=== PATIENT | female | born 1945 | race Caucasian/White ===

== ENCOUNTER 2016-09-15 09:02 | Emergency (ER) | payer MEDICARE ==
[~2016-09-15] VITALS: Ht 157.5 cm; Wt 71.8 kg
[2016-09-15 09:07] VITALS: BP 136/87; PULSE 98; RESP 15; O2SAT 98
--- NOTE | 2016-09-15 09:16 | ED.REPORT ---
HPI-General Illness Date of Service September 15, 2016 ED Provider: The patient is a 70 year old female with history of kidney stones, ischemic colitis s/p bowel resection, hypertension, high cholesterol, and diabetes mellitus type II, who presents to the emergency department complaining of right flank pain that began suddenly this morning. Her pain radiates into her right lower abdomen and right groin region. Her pain is constantly a "dull ache" but she gets waves of "sharp" pain. She has also noticed hematuria, dysuria, and nausea. She took Zofran and Vicodin this morning with some relief. Her pain is currently at a 6/10. She denies fever, vomiting, diarrhea or bloody stools. Her symptoms are similar to when she previously had kidney stones. She was seen at [facility] and diagnosed with a kidney stone last year. Nursing Notes Stated Complaint: PASSING KIDNEY STONE/ UTI Chief Complaint: Back Pain or Injury Nursing Notes Reviewed: Yes Allergies: Coded Allergies: morphine (Verified Adverse Reaction, Intermediate, jittery, 09/15/16) codeine (Verified Adverse Reaction, Mild, nausea, 09/15/16) General Time Seen by MD: 09:15 Chief Complaint Other (flank pain) Hx Obtained From: Patient Arrived By: Walk-in Sudden in Onset?: Yes Onset Occurred: 1 - 4 hours ago Symptom Duration: Since onset Location: : Back (flank pain) Quality: Painful Radiation: : Abdomen Severity: Current: Pain level 6 out of 10 Severity: Maximum: Severe Recent Healthcare: No recent hospitalization Similar Sx Previous: Yes Past Medical History Past Medical History Hx of kidney stones Ischemic colitis s/p bowel resection Hypothyroidism Hypertension Migraines Diabetes mellitus type II High cholesterol Past Surgical History Hysterectomy Bowel resection for ischemic colitis Appendectomy Family History Noncontributory Smoking History Unknown if Ever Smoker Social History Other Social History: Poor social support, , Local resident Ambulatory Status Independent Review of Systems Full Review of Systems Constitutional: Denies: Fever GI: Reports: Abdominal pain, Nausea, Denies: Bloody/tarry stool, Diarrhea, Hematochezia, Vomiting Female: Reports: Dysuria, Flank pain, Hematuria Musculoskeletal: Reports: Back pain Complete sys rev & neg: except as marked. Physical Exam Vital Signs Vital Signs Date Time Temp Pulse Resp B/P Pulse Ox O2 Delivery O2 Flow Rate FiO2 09/15/16 12:11 88 15 128/80 98 Room Air 09/15/16 09:07 36.0 98 15 136/87 98 Room Air Initial VS: Reviewed Head / Eyes: Atraumatic, Normocephalic, PERRL ENT: Mucous membranes moist, Conjunctiva normal, No scleral icterus Neck: Supple, Non-tender, Full range of motion Respiratory: Breath sounds normal, Clear to auscultation, No respiratory distress Cardiovascular: Regular rate & rhythm, Heart sounds normal, Intact distal pulses Lymphatic: No lymphadenopathy Extremities: Vascular intact, Neuro intact, No swelling, No tenderness Skin: Warm, Dry, No cyanosis Neurologic: Alert, Oriented, Nonfocal Psychiatric: Mood/affect normal, Behavior normal, Normal thought content General/Constitutional: Awake, Alert, No acute distress, Cooperative Abdomen: Soft, McBurney's non-tender, No guarding, No rebound, BS normoactive, No distention, No hernia, No palpable mass, No pulsatile mass Tenderness/Guarding/Rebound: Positive: Tender suprapubic (minimal) Back: Full range of motion, Painless range of motion, No midline vertebral tend Flank / Spine / Paraspinal: Positive: Flank tender R Interpretation & Diagnostics Interpretation & Diagnostics: Urine dip: positive for only blood. CT KUB IMPRESSION: There is a punctate faint calcification at the collecting system of the left mid kidney, but this is not a obstructing calculus. There is prominence of the collecting system of each kidney greater on the right than the left, and several superimposed peripelvic cysts may be present, perhaps greater on the left than the right. Contrast-enhanced scanning would be necessary to differentiate between areas of collecting system dilatation and peripelvic cysts. There is a definite impacted 5 x 8 mm distal right ureteral calculus causing mild to moderate hydroureter on the right and also moderate hydronephrosis on the right. This calculus measures 900 Hounsfield units. Dictated by: Faraz Mullins M.D. on 09/15/2016 at 11:01 Lab Results Interpretation Result Diagram: 09/15/16 0930 09/15/16 0930 Test 09/15/16 09:25 09/15/16 09:30 Urine Color Yellow (YELLOW) Urine Appearance Clear (CLEAR,HAZY) Urine pH 6.0 (5.0-8.0) Urine Specific [place] 1.005 (1.003-1.035) Urine Protein Negativemg/dL (NEG,TRACE) Urine Glucose (UA) Negativemg/dL (NEGATIVE) Urine Ketones Negativemg/dL (NEGATIVE) Urine Occult Blood Moderate (NEGATIVE) Urine Nitrite Negative (NEGATIVE) Urine Bilirubin Negative (NEGATIVE) Urine Urobilinogen Normalmg/dL (NORMAL) Urine Leukocyte Esterase Negative (NEGATIVE) Urine RBC 3-10/hpf (0-2) Urine WBC 0-5/hpf (0-5) Urine Epithelial Cells Occasional/hpf (NONE-MOD) Urine Crystals None seen (NONE SEEN) Urine Bacteria None/hpf (NONE-FEW) Urine Hyaline Casts None/lpf (NONE) Urine Granular Casts None seen (NONE SEEN) Urine Waxy Casts None seen (NONE SEEN) Urine Red Blood Cell Casts None seen (NONE SEEN) Urine White Blood Cell Casts None seen (NONE SEEN) Urine Mucus None seen (None Seen) Urine Trichomonas None seen (NONE SEEN) Urine Yeast None (NONE SEEN) Urinalysis Comment None Urine Culture Reflexed Not indicated White Blood Count 8.5th/mm3 (3.8-10.1) Red Blood Count 4.57mil/mm3 (3.90-5.20) Hemoglobin 12.6g/dL (12.0-15.6) Hematocrit 40.3% (35.0-46.0) Mean Corpuscular Volume 88.2fL (81-100) Mean Corpuscular Hemoglobin 27.6pg (27.0-35.0) Mean Corpuscular Hemoglobin Concent 31.3% (32.0-37.0) Red Cell Distribution Width 13.7% (12.3-15.4) Platelet Count 247bil/L (150-400) Neutrophils (%) (Auto) 68.4% (40-74) Lymphocytes (%) (Auto) 17.9% (14-46) Monocytes (%) (Auto) 7.8% (4-12) Eosinophils (%) (Auto) 5.5% (0-5) Basophils (%) (Auto) 0.2% (0-3) Sodium Level 133mEq/L (134-144) Potassium Level 4.5mEq/L (3.5-5.2) Chloride Level 96mEq/L (97-108) Carbon Dioxide Level 24mmol/L (18-29) Blood Urea Nitrogen 20mg/dL (8-27) Creatinine 0.60mg/dL (0.57-1.00) Estimat Glomerular Filtration Rate 142mL/min (>59) Glucose Level 195mg/dL (60-99) Calcium Level 9.2mg/dL (8.5-10.1) Magnesium Level 2.0mg/dL (1.6-2.6) Total Bilirubin 0.3mg/dL (0.0-1.2) Aspartate Amino Transf (AST/SGOT) 22U/L (0-50) Alanine Aminotransferase (ALT/SGPT) 19U/L (0-32) Alkaline Phosphatase 70U/L (25-165) Total Protein 7.0g/dL (6.4-8.4) Albumin 4.1g/dL (3.4-5.0) Lipase 13U/L (13-60) Hold Gardner Top Tube Received (Received) Re-Eval/Medical Decision Source of Hx: Old records Time of Eval: 11:15 Re-Evaluation/Progress Note: Rechecked the patient. Discussed results, diagnosis, and plan for discharge. All questions were addressed. Counseled Regarding: Diagnosis, Lab results, Need for follow-up, When/why to return to ED Discharge & Departure Primary Impression: Ureteral stone Disposition: Home Discharge Condition All VS Reviewed: Yes Condition: Stable Patient Instructions: Renal Colic (ED) Additional Instructions: Thank you for entrusting us with your care today. Your CT scan does show evidence of a stone in your right ureter. There is no evidence of an infection at this time. Use the Vicodin you have at home for your pain. Use should also take ibuprofen 400 mg every 6 hours. You should followup with a urologist to further investigate this. We have given you a referral to Dr. Gonsalves. Return to the emergency department if you develop a fever, vomiting, inability to urinate, or any other new or concerning symptoms. Referrals: OTHER,PHYSICIAN (PCP) Zina Gonsalves MD Attestation Portions of this note were transcribed by Ananya Easley. I, Dr. Lynne personally performed the history, physical exam and medical decision-making; I reviewed and confirmed the accuracy of the information in the transcribed note. Signed by: Sheri Tirado, 09/15/2016 at 1145. copies to: Zina Gonsalves MD, Timothy S DO September 15, 2016 09:16 Kaushal,Ananya Langley September 15, 2016 09:23
[2016-09-15] MEDS ORDERED: 0.9% Sodium Chloride 1,000 ML IV ONE (09:22)
[2016-09-15] MEDS ORDERED: Ketorolac 15 mg/mL Inj IVPUSH ONE (09:25)
[2016-09-15] MEDS ORDERED: Ondansetron 2 mg/mL 2 mL Inj IVPUSH PRN (09:25)
[2016-09-15 09:51] LABS: BASOPHILS % (AUTO) 0.2 % (0-3); EOSINOPHILS % (AUTO) 5.5 % (0-5); MONOCYTES % (AUTO) 7.8 % (4-12); Mean Corpuscular Hemoglobin 27.6 pg (27.0-35.0); Mean Corpuscular Volume 88.2 fL (81-100); NEUTROPHILS % (AUTO) 68.4 % (40-74); Platelet Count 247 bil/L (150-400)
[2016-09-15 09:55] LABS: APPEARANCE,URINE CLEAR (CLEAR,HAZY); COLOR,URINE YELLOW (YELLOW); OCCULT BLOOD,URINE MODERATE (NEGATIVE); UROBILINOGEN,URINE NORMAL (NORMAL)
--- NOTE | 2016-09-15 11:13 | DRSVH ---
PROCEDURE: CT KUB ([id number]) INDICATIONS: right flank pain TECHNIQUE: Noncontrast 5 mm thick sections acquired from the diaphragms to the symphysis. 5 mm thick coronal an d sagittal reformats were then performed. For radiation dose reduction, the following was used: aut omated exposure control, adjustment of mA and/or kV according to patient size. COMPARISON: None. FINDINGS: Image quality: Excellent. Lung bases: Lung bases are clear. Heart size is normal. Urinary system: Both kidneys are normal in size. No kidney stones on the right but there is a minh meter diameter calculus at the left mid kidney (series 2 image 22). There is moderate prominence of the collecting system of each kidney, and a component of this may actually be superimposed peripelvic cysts but at least on the right a moderate degree of hydronephrosis appears present given the additi onal presence of mild to moderate hydroureter extending on the right to the distal ureter where a imp acted plus measuring 900 Hounsfield units can be seen, acetabular roof axial level (series 2 image 62 ). Both ureters appear non-dilated throughout their expected courses. Bladder wall thickness is nor mal; no calcified bladder stones. Other solid organs: Liver and spleen are normal in size. Gallbladder appears normal. Pancreas is n ormal in contours. No adrenal nodules. Peritoneum and bowel: Unenhanced bowel loops demonstrate normal wall thickness and caliber. No free fluid or air. Nodes and vessels: No retroperitoneal or mesenteric adenopathy by size criteria. Aorta and inferior vena cava are normal in caliber. Abdominal wall: No ventral hernias. Pelvis: No free pelvic fluid. No inguinal hernias or adenopathy. Bones: No suspicious bony lesions. No vertebral body compression fractures. IMPRESSION: There is a punctate faint calcification at the collecting system of the left mid kidney, but this is not a obstructing calculus. There is prominence of the collecting system of each kidney greater on the right than the left, and several superimposed peripelvic cysts may be present, perhaps greater on the left than the right. Contrast-enhanced scanning would be necessary to differentiate between areas of collecting system dilatation and peripelvic cysts. There is a definite impacted 5 x 8 mm distal right ureteral calculus causing mild to moderate hydrour eter on the right and also moderate hydronephrosis on the right. This calculus measures 900 H[address]sf[address] units. Dictated by: Faraz Mullins M.D. on 09/15/2016 at 11:01 Approved by: Faraz Mullins M.D. on 09/15/2016 at 11:11
[2016-09-15 12:11] VITALS: BP 128/80; PULSE 88; RESP 15; O2SAT 98
[2016-10-07] MEDS ORDERED: metformin (14:46)
[2016-10-07] MEDS ORDERED: LORA-303 PO (14:46)
[2016-10-07] MEDS ORDERED: Imitrex (14:46)
[2016-10-07] MEDS ORDERED: Lipitor (14:46)
[2016-10-07] MEDS ORDERED: HYDR-3090 PO (14:46)
[2016-10-07] MEDS ORDERED: biotin (14:46)
[2016-10-07] MEDS ORDERED: Amitriptyline (14:46)
[2016-10-07] MEDS ORDERED: LEVO125T6 PO (14:46)
[2016-10-07] MEDS ORDERED: OMEP20TA24 PO (14:46)
[2016-10-07] MEDS ORDERED: magnesium (14:46)
== END 2016-09-15 12:12 | disposition home or self-care (01) ==
LOC: SED 09:02
DX: N20.1 Calculus of ureter (principal); E03.9 Hypothyroidism, unspecified; I10 Essential (primary) hypertension; E11.9 Type 2 diabetes mellitus without complications; Z98.890 Other specified postprocedural states; Z88.5 Allergy status to narcotic agent
CPT/HCPCS: 36415; 74176; 80053; 81000; 83690; 83735; 85025; 96361; 96374; 96375; 99285; J1885; J2405; J7030

== ENCOUNTER 2016-10-11 09:23 | Day surgery (SDC) | payer MEDICARE ==
[~2016-10-11] VITALS: Ht 157.5 cm; Wt 72.0 kg
[2016-10-11] VITALS (8 sets, daily range): BP systolic 130–156; BP diastolic 65–75; PULSE 87–93; RESP 12–18; O2SAT 96–100
[~2016-10-11 09:23] MED LIST: Amitriptyline PO; CeFAZolin 2 Gm/50 mL D5W IV Premix IV ONE; HYDR-3090 PO; Imitrex; LEVO125T6 PO; LORA-303 PO; Lactated Ringer's 1,000 ML IV ONE; Lipitor PO; OMEP20TA24 PO; biotin; magnesium; metformin PO
[2016-10-11] MEDS ORDERED: Dexamethasone 4 mg/mL Inj ONE (09:24)
[2016-10-11] MEDS ORDERED: Propofol 10,000 mCg/mL 20 mL Inj ONE (09:24)
[2016-10-11] MEDS ORDERED: MetoCLOpramide 5 mg/mL 2 mL Inj ONE (09:24)
[2016-10-11] MEDS ORDERED: Ondansetron 2 mg/mL 2 mL Inj ONE (09:24)
[2016-10-11] MEDS ORDERED: fentaNYL-PF 50 mCg/mL 2 mL Inj ONE (09:24)
[2016-10-11] MEDS ORDERED: CeFAZolin 2 Gm/50 mL D5W Duplex Bag IV ONE (09:34)
[2016-10-11] MEDS ORDERED: PROZ20 PO (10:30)
[2016-10-11] MEDS ORDERED: tylenol PO (10:30)
--- NOTE | 2016-10-11 10:57 | PCM.HPANE ---
Patient Data Surgeon Admitting Provider: Attending Provider:Zina Gonsalves MD Primary Care Physician:Other,Physician Other Provider:Megan Kim Anesthesia Reason for Visit Right Ureteral Stone Ht/WT & BMI Height (Feet): 5 Height (Inches): 2.00 Weight (Kilograms): 72.0 Body Mass Index 29.00 Allergies Coded Allergies: morphine (Verified Adverse Reaction, Intermediate, jittery, 09/15/16) codeine (Verified Adverse Reaction, Mild, nausea, 09/15/16) Past Anesthesia History Anesthesia History: Denies:: Abnormal Airway, Anesthesia Reactions, Difficult Intubation, Fam Anesthesia Reaction, Fam Malignant Hypertherm, Malignant Hyperthermia Diabetes History Hx Diabetes?: Yes (blood sugar at home at 0730 96, drank breonna j, blood suager up to 135 at 09) Type of Diabetes: Type II Glycemic Control: Oral Medication Current Bedside Blood Glucose: 119 MRSA MRSA: No Medications Home Meds Incl Beta Uriel: No Reported Medications Fluoxetine (Prozac)20 Mg Wiufllt99 Mg PO DAILY Ref 0 10/11/16 [tylenol] No Conflict [id number] Mg PO prn 10/11/16 Levothyroxine 125 Mcg [id number] Mcg PO DAILY For Thyroid Replacement Ref 0 10/07/16 Hydrocodone-Acetaminophen 5-300 mg 1 Each Tablet1 Tablet PO QID For Pain Ref 0 10/07/16 Omeprazole Magnesium (Prilosec Otc)20 Mg Tablet.dr20 Mg PO BID #1 PKG Ref 0 10/07/16 [metformin] No Conflict Cyfet501 Mg PO BID 10/07/16 [magnesium] No Conflict CheckUnknown Dose 10/07/16 [Lipitor] No Conflict Check20 Mg PO DAILY 10/07/16 [Imitrex] No Conflict CheckUnknown Dose DIRECTED PRN Headache 10/07/16 [biotin] No Conflict CheckUnknown Dose 10/07/16 Lorazepam (Ativan)1 Mg Tablet1 Mg PO TID PRN For Anxiety Ref 0 10/07/16 [Amitriptyline] 10 No Conflict Check10 Mg PO DAILY 10/07/16 History History of ENT Problems?: No HEENT History: Positive for:: Cataracts (left eye June 2015) Denies:: Abnormal Airway Difficult Intubation Dysphagia Glaucoma Hearing Problem Sinus Problem TMJ Denture Type: None Teeth Condition: Within Normal Limits Hx of Heart Problems?: Yes Cardiovascular History: Positive for:: Hypertension Denies:: AICD Abdominal Aortic Aneurism Atrial Fibrillation Cardiac Surgery Chest Pain Congestive Heart Failure Coronary Artery Disease Edema Irregular Heartbeat Pacemaker Peripheral Vascular Rheumatic Fever Thrombophlebitis Other Cardiac History: Patient states she has a normal heart rate. Patient has had normal cardiac workup Hx of Respiratory Problem?: No Respiratory History: Denies:: Asthma Tuberculosis Hx Neurologic Problems?: Yes Neurological History: Positive for:: Headaches (migraines sperattic usually when the weather changes) Denies:: Alzheimer's Disease CVA Dementia Dizziness Multiple Sclerosis Parkinson's Disease Seizures TIA Hx of GI Problems?: No Hx of Problems?: Yes Genitourinary History: Positive for:: Kidney Stones Urinary Tract Infection (August 2016 tx with Abx. all clear now) Denies:: HX of Hemodialysis HX of Peritoneal Dialysis: No Female Hx: Denies:: Currently Endometriosis Pelvic Inflammatory Problems with Breasts? Skin History: Denies:: History Skin Disorders? Pressure Ulcers Hx Musculoskeletal Problems?: Yes Musculoskeletal History: Positive for:: Musculoskeletal Trauma (2012 broke scapula with plate repair) Osteoarthritis (knees) Denies:: Back Injury Degenerative Joint Fibromyalgia Joint Replacement Myasthenia Gravis Rheumatoid Arthritis Systemic Lupus Hx of Psycho/Social Problems?: Yes Psycho Social History: Positive for:: Anxiety (tx with ativan) Hx Depression Denies:: Bipolar Disorder Suicide Attempt Hx Surgeries?: Yes (Hysterectomy, Partial bowel resection, Hernia repair, Sholder fx) Other History: Positive for:: Endocrine Disease Hospitalization Thyroid Disease (Hypothyroid on Levothyroxin) Denies:: Cancer History Blood Transfusions: Positive for:: Accept Blood Products? Blood Transfusions (Post child 1968) Denies:: Blood Transfuse Reaction Hx Diabetes: Yes (blood sugar at home at 0730 96, drank apple j, blood suager up to 135 at 09)Bedside Blood Glucose: 119 Hx Alcohol Use: Yes (once a month a glass of wine)Alcoholic Drinks Per Day: 0 Hx Substance Use: No Smoking Status: Unknown if Ever Smoker Stop/Bang Treated for Sleep Apnea?: No Do You Have a CPAP Machine?: No S-Snoring: Do You Snore Loudly: Yes T-Tired: feel tired, fatigued: No O-Obsered: Observed not breath: No P-Blood Pressure: treated: No B- Body Mass Index > 35 kg/m2: No A- Age over 50: Yes N- Neck Large Circumference: No G- Gender Male: No CARLOS MANUEL Total Score: 2 CARLOS MANUEL Risk Assessment: Low Risk, <3 Yes Risk Assessment Category Category 1A: Patient has history of documented sleep apnea, and HAS NOT received any narcotic, sedative or anesthesia administration during this stay. Category 1B: Patient has history of documented sleep apnea, and HAS received any narcotic , sedative or anesthesia administration during this stay Category 2: Patient has SUSPECTED Obstructive Sleep Apnea, and HAS received any narcotic , sedative or anesthesia administration during this stay. Category 3: Patient has SUSPECTED Obstructive Sleep Apnea and HAS NOT received narcotic, sedative or anesthesia administration during this stay. Category 4: Outpatient in Procedural Areas with known sleep apnea or who screen positive for High Risk via the STOP/BANG questionnaire. Exam Exam Vital Signs Vital Signs Date Time Temp Pulse Resp B/P Pulse Ox O2 Delivery O2 Flow Rate FiO2 10/11/16 10:02 35.5 93 18 130/75 97 Room Air General Appearance: Oriented X3 HEENT/AIRWAY: MP 2 Lungs: Normal Air Movement Heart: Regular Rate/Rhythm Meds/Labs/Diagnostics Admission Meds Current Medications Lactated Ringer's (Lr) 1,000 ml @ 120 mls/hr Q8H20M ONCE IV Last administered on 10/11/16t 09:28; Start 10/11/16 at 05:00; Stop 10/11/16 at 13:19 Bedside Blood Glucose: 119 Plan Impression Patient chart reviewed, patient interviewed and anesthestic plan with risks, benefits, and alternatives discussed, and informed consent obtained. ASA Physical Status: ASA2 Mod Systemic Disease Anesthetic Plan: GA Bene/Risks/Altern/Consents: Yes HP Complete Prior to Induction: Yes Amandeep Oliveros MD Oct 11, 2016 10:57
[2016-10-11] MEDS ORDERED: Lactated Ringer's 500 ML IV PRN (14:37)
[2016-10-11] MEDS ORDERED: Lactated Ringer's 1,000 ML IV SCH (14:37)
--- NOTE | 2016-10-11 14:39 | PCM.ANEP1 ---
Post Anesthesia PACU Phase 1 Assessment Vital Signs Vital Signs Date Time Temp Pulse Resp B/P Pulse Ox O2 Delivery O2 Flow Rate FiO2 10/11/16 14:30 91 12 152/67 97 Room Air 10/11/16 14:26 36.7 91 17 151/68 100 Simple Mask 8 10/11/16 10:02 35.5 93 18 130/75 97 Room Air Anesthetic Administered: GA Level of Alertness: Awake, talking Pain: No Nausea or Vomiting: No CV Function & Hydration Stable: Yes Airway Device: Lungs: Normal Air Movement PACU Phase 2 Assessment Patient Instructions Provided: N/A Amandeep Oliveros MD Oct 11, 2016 14:39
[2016-10-11] MEDS ORDERED: MetoCLOpramide 5 mg/mL 2 mL Inj IVPUSH PRN (14:40)
[2016-10-11] MEDS ORDERED: Dexamethasone 4 mg/mL Inj IVPUSH PRN (14:40)
[2016-10-11] MEDS ORDERED: EPHEDrine Sulfate 50 mg/mL Inj IVPUSH PRN (14:40)
[2016-10-11] MEDS ORDERED: Ondansetron 2 mg/mL 2 mL Inj IVPUSH PRN (14:40)
[2016-10-11] MEDS ORDERED: Phenylephrine 10,000 mCg/mL Inj IVPUSH PRN (14:40)
[2016-10-11] MEDS ORDERED: fentaNYL-PF 50 mCg/mL 2 mL Inj IVPUSH PRN (14:40)
[2016-10-11] MEDS ORDERED: HYDROcodone-APAP 5-325 mg Tablet PO PRN (14:40)
--- NOTE | 2016-10-11 15:12 | DRSVH ---
PROCEDURE: X-RAY RETROGRADE UROGRAPHY INDICATIONS: C-ARM ASSISTED RIGHT STENT PLACEMENT TECHNIQUE: 2 fluoroscopic intra-operative images acquired by the Urology service. COMPARISON: None. FINDINGS: 2 intraoperative fluoroscopic views demonstrate right ureteral stent placement. IMPRESSION: Right ureteral stent placement. Dictated by: Karly Piedra M.D. on 10/11/2016 at 15:09 Approved by: Karly Piedra M.D. on 10/11/2016 at 15:10
--- NOTE | 2016-10-11 20:42 | OP ---
[address] [address] OPERATIVE REPORT PATIENT: WALTER LÓPEZ : 1945 MR#: [id number] ADMIT: 10/11/2016 JOB ID: [id number] DATE OF SURGERY: 10/12/2016 PREOPERATIVE DIAGNOSIS(ES): Right distal ureteral stone. POSTOPERATIVE DIAGNOSIS(ES): Right distal ureteral stone. PROCEDURE PERFORMED: 1. Cystoscopy and right retrograde pyelogram. 2. Right ureteroscopy, laser lithotripsy and stone basketing. 3. Right ureteral stent placement. SURGEON: Zina Gonsalves MD DRIVER [employer] TRUCK: None. FINDINGS: Right distal ureteral stone consistent with the CT measurement of 5 mm x 8 mm. ANESTHESIA: General. ESTIMATED BLOOD LOSS: Less than 2 mL. DRAINS: A 6 x 22, right double-J ureteral stent. SPECIMENS: Right ureteral stone. COMPLICATIONS: None. CONDITION: Stable. INDICATIONS FOR PROCEDURE: The patient is a 70-year-old woman with a 5 x 8 mm right distal ureteral stone. She now presents for the aforementioned procedure. DESCRIPTION OF PROCEDURE: After informed consent was obtained, the patient was taken to the operating room. A time-out was performed identifying correct patient, surgical site, and procedure. General anesthesia was smoothly induced. She was given intravenous antibiotics just prior to the start of the procedure. She was placed in the lithotomy position and all pressure points were identified and appropriately padded. Her genitals were then prepped and draped in usual sterile fashion. A 22-Nigerien rigid scope was applied to the patient's urethra and advanced to the bladder. The bladder was drained. The right ureteral orifice was seen in orthotopic position. It was cannulated with a 5-Nigerien open-ended Pollack. Retrograde pyelogram was performed. It appeared normal. Two Sensor tip wires were then used to cannulate the ureteral orifice in succession and placed into the renal pelvis as seen under fluoroscopy. Semi-rigid ureteroscopy then commenced. There was seen a stone in the right distal ureter. A 273 micron laser fiber wire was used to break the stone into small pieces. A Zero Tip Nitinol basket was used to basket the stone fragments. These were passed off the table to Pathology for stone analysis. The ureter was inspected. The mid ureter and distally was inspected. There were no further stone fragments. The ureteroscope was then removed under direct vision. One of the wires was then removed. The remaining wire was then backloaded into the cystoscope and a 6 x 22 double-J ureteral stent was loaded over it and advanced into the renal pelvis as seen under fluoroscopy. The wire was then removed leaving a nice coil in the patient's bladder seen under direct vision. The bladder was drained. Instruments were then removed from the patient's body. She was then reversed from general anesthesia and taken to PACU in good and stable condition. NU
== END 2016-10-11 23:59 | disposition home or self-care (01) ==
LOC: SAS 09:23
PROVIDERS: ATTEND Urology
DX: N20.1 Calculus of ureter (principal); I10 Essential (primary) hypertension; E11.9 Type 2 diabetes mellitus without complications; M19.90 Unspecified osteoarthritis, unspecified site; F41.8 Other specified anxiety disorders; Z79.84 Long term (current) use of oral hypoglycemic drugs; Z90.710 Acquired absence of both cervix and uterus
CPT/HCPCS: 52356; 74420; 82360; C2617; J0690; J1100; J2405; J2765; J3010; J7120; Q9967

== ENCOUNTER 2016-10-18 15:39 | Inpatient (IN) | payer MEDICARE ==
[~2016-10-18] VITALS: Ht 157.5 cm; Wt 75.2 kg
[~2016-10-18 15:39] MED LIST changes: -CeFAZolin 2 Gm/50 mL D5W IV Premix IV ONE; -Lactated Ringer's 1,000 ML IV ONE; +PROZ20 PO; +tylenol PO
[2016-10-18 15:56] VITALS: BP 175/96; PULSE 101; RESP 20; O2SAT 95
[2016-10-18] MEDS ORDERED: Ondansetron 8 mg ODT Tablet ONE (16:10)
[2016-10-18 17:21] LABS: BASOPHILS % (AUTO) 0.2 % (0-3); MONOCYTES % (AUTO) 7.6 % (4-12); Mean Corpuscular Hemoglobin 27.6 pg (27.0-35.0); Mean Corpuscular Volume 88.1 fL (81-100); NEUTROPHILS % (AUTO) 79.7 % (40-74); Platelet Count 317 bil/L (150-400)
--- NOTE | 2016-10-18 17:49 | ED.REPORT ---
HPI-General Illness Date of Service Oct 18, 2016 ED Provider: Apollo Oropeza MD Pt is a 71 year old female with a hx of DM and HTN presenting to the ED complaining of 12/10 right flank pain and cramping radiating to the right abdomen sudden onset about 5 hours ago. Associated symptoms include nausea and diaphoresis. Denies fever, chills, vision changes, vomiting, change in urinary habits, or any other symptoms at this time. She had a right ureteral stint removed this morning and she felt fine immediately afterwards but developed pain later. The pain is slightly relieved by urination, although she has a decreased urine volume. Pt took 2 Vicodin at home without relief. Nursing Notes Stated Complaint: RIGHT SIDE PAIN AFTER STINT TAKEN OUT Chief Complaint: Female Abdominal Pain Nursing Notes Reviewed: Yes Allergies: Coded Allergies: morphine (Verified Adverse Reaction, Intermediate, jittery, 10/18/16) codeine (Verified Adverse Reaction, Mild, nausea, 10/18/16) Scheduled ([Amitriptyline]) 10 10 MG PO HS ([Lipitor]) 20 MG PO DAILY ([tylenol]) 1,000 MG PO prn Biotin (Biotin) 10 Mg Tablet 10 MG PO DAILY Cholecalciferol (Vitamin D3) (Vitamin D3) 2,000 Unit Capsule 2,000 UNIT PO DAILYWD Fluoxetine (Prozac) 20 Mg Capsule 20 MG PO DAILY Hydrocodone-Acetaminophen 5-300 mg (Hydrocodone-Acetaminophen 5-300 mg) 1 Each Tablet 1 TABLET PO QID Levothyroxine (Levothyroxine) 125 Mcg Tablet 125 MCG PO DAILY Magnesium Amino Acid Chelate (Magnesium) 100 Mg Tablet 100 MG PO DAILY Metformin (Metformin) 500 Mg Tablet 1,000 MG PO MORNING Metformin (Metformin) 500 Mg Tablet 500 MG PO DAILYWD Omeprazole Magnesium (Prilosec Otc) 20 Mg Tablet.dr 20 MG PO HS Scheduled PRN ([Imitrex]) Unknown Dose DIRECTED PRN PRN Headache Docusate Calcium (Stool Softener) 240 Mg Capsule 240 MG PO HS PRN PRN For Constipation Lorazepam (Ativan) 1 Mg Tablet 1 MG PO TID PRN PRN For Anxiety General Time Seen by MD: 17:30 Chief Complaint Abdominal pain Hx Obtained From: Patient Arrived By: Walk-in Sudden in Onset?: Yes Onset Occurred: 5 - 8 hours ago Symptom Duration: Since onset Location: : Abdomen Quality: Painful Severity: Current: Severe Severity: Maximum: Pain scale (12/10) Recent Healthcare: No recent hospitalization, Recent doctor visit Similar Sx Previous: No Past Medical History Past Medical History Hx of kidney stones Ischemic colitis s/p bowel resection Hypothyroidism Hypertension Migraines Diabetes mellitus type II High cholesterol Past Surgical History Hysterectomy Bowel resection for ischemic colitis Appendectomy Family History Noncontributory Smoking History Unknown if Ever Smoker Social History Other Social History: Poor social support, , Local resident Ambulatory Status Independent Review of Systems Full Review of Systems Constitutional: Denies: Chills, Fever Eyes: Denies: Blurred bilateral GI: Reports: Nausea, Denies: Vomiting Female: Reports: Flank pain, Urinary urgency, Urination decreased Skin: Reports Diaphoresis Complete sys rev & neg: except as marked. Physical Exam Nursing note and vitals reviewed. Constitutional: Well-developed, well-nourished. Not diaphoretic. Head: Normocephalic and atraumatic. Mouth/Throat: Oropharynx is clear and moist. No oropharyngeal exudate. Eyes: EOM are normal. Pupils are equal, round, and reactive to light. Neck: Supple, no tracheal deviation. Cardiovascular: Normal rate, regular rhythm. Equal and intact distal pulses throughout. Pulmonary/Chest: Effort normal and breath sounds normal. No respiratory distress. Abdominal: Soft. No distension. There is no tenderness, rebound, or guarding to palpation. Bowel sounds present. Musculoskeletal: Range of motion grossly intact, moving all extremities. No edema or tenderness appreciated. Neurological: AOx3. Grossly nonfocal exam. Strength and sensation intact and equal to bilateral upper and lower extremities. Skin: Warm and dry, no rashes or pallor appreciated. Psychiatric: Appropriate mood and affect. Behavior appears normal. Vital Signs Vital Signs Date Time Temp Pulse Resp B/P Pulse Ox O2 Delivery O2 Flow Rate FiO2 10/18/16 20:36 107 18 157/85 94 Room Air 10/18/16 15:56 36.7 101 20 175/96 95 Room Air Initial VS: Reviewed Interpretation & Diagnostics Lab Results Interpretation Result Diagram: 10/18/16 1715 10/18/16 1715 Test 10/18/16 17:15 10/18/16 18:54 White Blood Count 17.7th/mm3 (3.8-10.1) Red Blood Count 4.89mil/mm3 (3.90-5.20) Hemoglobin 13.5g/dL (12.0-15.6) Hematocrit 43.1% (35.0-46.0) Mean Corpuscular Volume 88.1fL (81-100) Mean Corpuscular Hemoglobin 27.6pg (27.0-35.0) Mean Corpuscular Hemoglobin Concent 31.3% (32.0-37.0) Red Cell Distribution Width 13.8% (12.3-15.4) Platelet Count 317bil/L (150-400) Neutrophils (%) (Auto) 79.7% (40-74) Lymphocytes (%) (Auto) 10.1% (14-46) Monocytes (%) (Auto) 7.6% (4-12) Eosinophils (%) (Auto) 2.0% (0-5) Basophils (%) (Auto) 0.2% (0-3) Prothrombin Time 9.7sec (8.1-12.5) Prothromb Time International Ratio 0.91ratio Sodium Level 135mEq/L (134-144) Potassium Level 4.5mEq/L (3.5-5.2) Chloride Level 96mEq/L (97-108) Carbon Dioxide Level 22mmol/L (18-29) Blood Urea Nitrogen 18mg/dL (8-27) Creatinine 0.80mg/dL (0.57-1.00) Estimat Glomerular Filtration Rate 102mL/min (>59) Glucose Level 171mg/dL (60-99) Calcium Level 10.1mg/dL (8.5-10.1) Magnesium Level 2.0mg/dL (1.6-2.6) Total Bilirubin 0.3mg/dL (0.0-1.2) Aspartate Amino Transf (AST/SGOT) 24U/L (0-50) Alanine Aminotransferase (ALT/SGPT) 21U/L (0-32) Alkaline Phosphatase 78U/L (25-165) Total Protein 7.7g/dL (6.4-8.4) Albumin 4.2g/dL (3.4-5.0) Lipase 11U/L (13-60) Hold Gardner Top Tube Received (Received) Urine Color Yellow (YELLOW) Urine Appearance Hazy (CLEAR,HAZY) Urine pH 5.0 (5.0-8.0) Urine Specific [place] 1.030 (1.003-1.035) Urine Protein 100mg/dL (NEG,TRACE) Urine Glucose (UA) 250mg/dL (NEGATIVE) Urine Ketones Tracemg/dL (NEGATIVE) Urine Occult Blood Large (NEGATIVE) Urine Nitrite Negative (NEGATIVE) Urine Bilirubin Negative (NEGATIVE) Urine Urobilinogen Normalmg/dL (NORMAL) Urine Leukocyte Esterase Trace (NEGATIVE) Urine RBC 11-50/hpf (0-2) Urine WBC 6-10/hpf (0-5) Urine Epithelial Cells None/hpf (NONE-MOD) Urine Crystals None seen (NONE SEEN) Urine Bacteria Few/hpf (NONE-FEW) Urine Hyaline Casts None/lpf (NONE) Urine Granular Casts None seen (NONE SEEN) Urine Waxy Casts None seen (NONE SEEN) Urine Red Blood Cell Casts None seen (NONE SEEN) Urine White Blood Cell Casts None seen (NONE SEEN) Urine Mucus None seen (None Seen) Urine Trichomonas None seen (NONE SEEN) Urine Yeast None (NONE SEEN) Urinalysis Comment None Urine Culture Reflexed Indicated CT Abd / Pelvis Interpretation IMPRESSION: Persistent mgyu-xx-kzibzsdh right hydroureteronephrosis with perinephric and periureteral inflammatory stranding. This may have increased slightly since the prior study. Interval disappearance of previously seen distal right ureteral calculus since prior CT dated 08/16/16. No current urolithiasis identified. Left parapelvic cysts. Hepatic steatosis. Dictated by: Naresh Cook M.D. on 10/18/2016 at 19:33 Study type: Abdominal CT IV contrast Interpretation / Wet Read by: Interpret - Radiologist Re-Eval/Medical Decision Med Decision/Clinical Course Persistent qrlu-hu-qpkvmvno right hydroureteronephrosis with perinephric and periureteral inflammatory stranding. Mildly elevated lactic acid. 71-year-old female presenting to the ED for evaluation of sudden onset of right sided abdominal pain since earlier today in the setting of recently having her ureteral stent removed. Appears very uncomfortable. The ED. Initial laboratory studies notable for a lactic acid of 2.7, white blood cell count of 17. CT scan demonstrates persistent mild to moderate right hydroureteronephrosis with perinephric and periureteral inflammatory stranding. Discussed with urology, as noted below. She does not have any history of coronary disease or atrial fibrillation, and while mesenteric ischemia is possible, this seems less likely at this time. Plan admission for further management and evaluation; urology to see the patient tomorrow. Patient agreeable to the plan as stated, no further questions. Time of Eval: 20:00 Patient Status: Condition improved Re-Evaluation/Progress Note: Pt still in intractible pain after pain medications. Time of Eval: 20:27 Patient Status: Condition improved Re-Evaluation/Progress Note: Discussed CT results and plan for admission. Pt understands and agrees. Consultation #1: Referral / Consult Name: Jacquelin Griffin MD Consulted With: Urology Call Returned at: 18:07 Note: Nothing in particular she is worried about from a urology perspective. No further urology intervention needed. Consultation #2: Referral / Consult Name: Jacquelin Griffin MD Consulted With: Urology Call Returned at: 20:00 Note: Recommends admission. She will see the pt tomorrow. Consultation #3: Referral / Consult Name: Gracy Grimes DO Consulted With: Hospitalist Call Returned at: 20:19 Stenocaptioner: Will see patient, Agrees with plan, Accepts admit Counseled Regarding: Diagnosis, Lab results, Need for follow-up, When/why to return to ED Discharge & Departure Primary Impression: Hydroureteronephrosis Additional Impressions: Intractable pain Pyelonephritis Disposition: ADMITTED TO HOSPITAL Discharge Condition All VS Reviewed: Yes Condition: Improved Referrals: OTHER,PHYSICIAN (PCP) (Family) Sheri Attestation Portions of this note were transcribed by Dorys Galan. I, Dr. Oropeza personally performed the history, physical exam and medical decision-making; I reviewed and confirmed the accuracy of the information in the transcribed note. Signed by: Sheri Hewitt, 10/18/2016 at 2030. Apollo Oropeza MD Oct 18, 2016 17:49 DORYS GALAN Oct 18, 2016 17:57
[2016-10-18] MEDS ORDERED: HYDROmorphone 1 mg/mL Inj IM ONE ×2 (17:50→17:55)
[2016-10-18] MEDS ORDERED: 0.9% Sodium Chloride 1,000 ML IV ONE ×2 (18:04→20:00)
[2016-10-18] MEDS ORDERED: Ondansetron 2 mg/mL 2 mL Inj IVPUSH PRN ×2 (18:05→20:25)
[2016-10-18] MEDS ORDERED: HYDROmorphone 0.5 mg/0.5 mL iSecure Syringe IVPUSH ONE (18:05)
[2016-10-18 18:23] LABS: INR 0.91 ratio
[2016-10-18 19:12] LABS: APPEARANCE,URINE HAZY (CLEAR,HAZY); COLOR,URINE YELLOW (YELLOW)
[2016-10-18 19:13] LABS: OCCULT BLOOD,URINE LARGE (NEGATIVE); UROBILINOGEN,URINE NORMAL (NORMAL)
--- NOTE | 2016-10-18 19:40 | DRSVH ---
PROCEDURE: CT ABDOMEN AND PELVIS WITH CONTRAST ([id number]) INDICATIONS: recent stent removal, now sudden, severe R CVA eryn TECHNIQUE: After the administration of intravenous contrast, 5 mm thick sections acquired from the diaphragm to the symphysis. 5 mm coronal and sagittal reformats were acquired. For radiation dose reduction, the following was used: automated exposure control, adjustment of mA and/or kV according to patient graciela cordova COMPARISON: [facility], CT, CT KUB, 09/15/2016, 10:56. FINDINGS: Image quality: Excellent. ABDOMEN: Lung bases: Lung bases are clear. Heart size is normal. Solid organs: Hepatic steatosis, otherwise liver and spleen are normal in size and enhancement. Gall bladder negative. Biliary system is non dilated. Pancreas enhances normally. No adrenal nodules. Possible left parapelvic cysts. There is persistent sdzl-ht-lrigpade right hydronephrosis and hydrour eter with perinephric and periureteral inflammatory stranding. A previously seen distal right uretera l calculus is no longer visualized. No bladder calculi seen. Peritoneum and bowel: Bowel loops demonstrate normal wall thickness and caliber. No free fluid or a ir. The appendix is not clearly identified. The rectum is largely decompressed. There is a large clementine unt of stool throughout the colon. Surgical clips seen within the left abdomen Nodes and vessels: No retroperitoneal or mesenteric adenopathy by size criteria. Aorta and inferior vena cava are normal in size. Miscellaneous: No ventral hernias. PELVIS: Genitourinary: The bladder is decompressed. Miscellaneous: No inguinal hernias or adenopathy. Bones: No suspicious bony lesions. No vertebral body compression fractures. IMPRESSION: Persistent rwuc-ez-tkidksrc right hydroureteronephrosis with perinephric and periureteral inflammator y stranding. This may have increased slightly since the prior study. Interval disappearance of previo usly seen distal right ureteral calculus since prior CT dated 08/16/16. No current urolithiasis identi fied. Left parapelvic cysts. Hepatic steatosis. Dictated by: Naresh Cook M.D. on 10/18/2016 at 19:33 Approved by: Naresh Cook M.D. on 10/18/2016 at 19:38
[2016-10-18] MEDS: HYDROmorphone 1 mg/mL Inj IVPUSH PRN ×3 (20:06→22:10)
[2016-10-18] MEDS ORDERED: cefTRIAXone Inj 1,000 MG in Dextrose 5% Minibag Plus 50 ML IV ONE (20:10)
[2016-10-18] MEDS ORDERED: Polyethylene Glycol (PEG) 17 Gm Powder PO PRN (20:25)
[2016-10-18] MEDS ORDERED: Alum-Mag Hydrox-Simeth 30 mL Suspension PO PRN (20:25)
[2016-10-18 20:36] VITALS: BP 157/85; PULSE 107; RESP 18; O2SAT 94
[2016-10-18 22:37] VITALS: BP 157/85; PULSE 107; RESP 18; O2SAT 94
[2016-10-18 22:40] VITALS: BP 182/99; PULSE 111; RESP 18; O2SAT 93
[2016-10-18 22:50] VITALS: PULSE 112
[2016-10-18] MEDS ORDERED: CHOL200047 PO (23:04)
[2016-10-18] MEDS ORDERED: METF500T4 PO ×2 (23:04)
[2016-10-18] MEDS ORDERED: DOCU240C41 PO (23:04)
[2016-10-18] MEDS ORDERED: MAGN100T5 PO (23:04)
[2016-10-18] MEDS ORDERED: BIOT10TA PO (23:04)
--- NOTE | 2016-10-18 23:23 | PCM.HPMED ---
Subjective Date of Service Oct 18, 2016 Primary Provider: Admitting Physician: Gracy Grimes DO Primary Care Physician: Other,Physician Attending Physician: Gracy Grimes DO Admit Status: From the Emergency Department Chief Complaint: abdominal pain History of Present Illness: 71yoF with past medical history of diabetes type 2, HLD, bowel resection 2/2 ischemic colitis admitted following ureter stent removal with severe sepsis secondary to pyelonephritis Patient has recent history of nephrolithiasis requiring cystoscopy and laser lithotripsy with right ureteral stent placement. 10/18 patient was seen in clinic and ureteral stent was removed without difficulty. Following removal Mrs. Walker began to feel ill with some nausea and lightheadedness. She also endorses increased right flank pain throughout the day associated with urinary urgency and frequency. She called her urology clinic and was advised to go to [facility] if pain continued to worsen. Pain was characterized as crampy 12/10 "worst pain of my life" in the right flank with radiation down to lower back. On presentation patient was noted to be septic with HR >90, WBC>12 and elevated lactic acid CT scan with right hydroureteronephrosis with perinephric and periureteral inflammatory stranding Review of Systems: complete review of systems obtained. positive as per hpi otherwise negative. Allergies Coded Allergies: morphine (Verified Adverse Reaction, Intermediate, jittery, 10/18/16) codeine (Verified Adverse Reaction, Mild, nausea, 10/18/16) Home Medications Biotin Vitamin D3 Docusate Fluoxetine Hydrocodone-acetaminophen Levothyroxine Lorazepam Magnesium Metformin Omeprazole Amitriptyline Imitrex Lipitor Acetaminophen PMH Nephrolithiasis Diabetes Depression / anxiety GERD Migraines HLD Surgical History Cystoscopy and right retrograde pyelogram. Right ureteroscopy, laser lithotripsy and stone basketing. Right ureteral stent placement. Hysterectomy Ectopic Tubal ligation Bowel resection 2/2 ischemic colitis Hernia x3 Left shoulder surgery Family History Daughter with h/o nephrolithiasis Social History Hx Alcohol Use: Yes (once a month a glass of wine) Hx Substance Use: No Smoking Status: Never Smoker Exam Vital Signs Vital Sign - Last Date Time Temp Pulse Resp B/P Pulse Ox O2 Delivery O2 Flow Rate FiO2 10/18/16 22:50 112 10/18/16 22:40 36.8 18 182/99 93 Room Air Exam General: A&O, mild distress, well-developed, well-nourished, appropriately interactive Eyes: PERRLA, EOMI, anicteric sclera, mildly injected conjunctiva HENT: Normocephalic, atraumatic. Moist mucous membranes Neck: Supple with full range of motion. No jugular venous distension. No bruits. No thyromegaly. Cardiovascular: tachy rate and reg rhythm with no murmurs, rubs, or gallops appreciated Pulmonary: clear to auscultation bilateral, Normal respiratory effort with no use of accessory muscles. Abdomen: Bowel tones present. Soft, tender right mid abd, right cva tenderness, nondistended. No hepatosplenomegaly or masses appreciated. : no morales in place Extremities: No clubbing, cyanosis, edema, or lymphadenopathy appreciated. Skin: Normal temperature, turgor, and texture; no rash, ulcers, or subcutaneous nodules appreciated. Neurological: Nonfocal neurologic exam, no tremors noted, able to move all extremities spontaneously Psychiatric: Normal mood and affect. Alert and oriented to person, place, and time. MSK: no joint erythema / edema noted on exam Lymph: no cervical or supraclavicular lymphadenopathy Lab and Diagnostics Result Diagram: 10/18/16171410/18/161714 X-Rays, CTs and MRIs Patient Name: WALTER WALKER MR#: [id number] Location: [facility] Ordering Phys: Apollo Oropeza MD Date of Service: 10/18/161811 PROCEDURE: CT ABDOMEN AND PELVIS WITH CONTRAST ([id number]) INDICATIONS: recent stent removal, now sudden, severe R CVA eryn TECHNIQUE: After the administration of intravenous contrast, 5 mm thick sections acquired from the diaphragm to the symphysis. 5 mm coronal and sagittal reformats were acquired. For radiation dose reduction, the following was used: automated exposure control, adjustment of mA and/or kV according to patient size. COMPARISON: [facility], CT, CT KUB, 09/15/2016, 10:56. FINDINGS: Image quality: Excellent. ABDOMEN: Lung bases: Lung bases are clear. Heart size is normal. Solid organs: Hepatic steatosis, otherwise liver and spleen are normal in size and enhancement. Gallbladder negative. Biliary system is non dilated. Pancreas enhances normally. No adrenal nodules. Possible left parapelvic cysts. There is persistent oevp-tt-kmeomvoq right hydronephrosis and hydroureter with perinephric and periureteral inflammatory stranding. A previously seen distal right ureteral calculus is no longer visualized. No bladder calculi seen. Peritoneum and bowel: Bowel loops demonstrate normal wall thickness and caliber. No free fluid or air. The appendix is not clearly identified. The rectum is largely decompressed. There is a large amount of stool throughout the colon. Surgical clips seen within the left abdomen Nodes and vessels: No retroperitoneal or mesenteric adenopathy by size criteria. Aorta and inferior vena cava are normal in size. Miscellaneous: No ventral hernias. PELVIS: Genitourinary: The bladder is decompressed. Miscellaneous: No inguinal hernias or adenopathy. Bones: No suspicious bony lesions. No vertebral body compression fractures. IMPRESSION: Persistent ypft-iz-vcrddofn right hydroureteronephrosis with perinephric and periureteral inflammatory stranding. This may have increased slightly since the prior study. Interval disappearance of previously seen distal right ureteral calculus since prior CT dated 08/16/16. No current urolithiasis identified. Left parapelvic cysts. Hepatic steatosis. Dictated by: Naresh Cook M.D. on 10/18/2016 at 19:33 Approved by: Naresh Cook M.D. on 10/18/2016 at 19:38 Assessment & Plan 71yoF with past medical history of diabetes type 2, HLD, bowel resection 2/2 ischemic colitis admitted following ureter stent removal with severe sepsis secondary to pyelonephritis Severe Sepsis, acute, POA -HR>90, WBC>12, RR=20, Lactic acid 2.7 -source most likely urinary -treatment as below -blood cultures ordered following admissin after abx given -urine cultures pending UTI/pyelonephritis, acute, POA -recent stent placement with removal on day of admission -Urine with possible UTI -flank pain suggestive of pyelonephritis -continue ceftriaxone -urology consulted, recs appreciated -NPO for possible procedure, discuss with urology in am Elevated glucose -history of diabetes -hgbA1c pending Diabetes, chronic, POA -hold metformin -hgbA1c pending -regular SSI, low correctional Hypothyroidism, chronic, poa -continue levothyroxine Anxiety and depression, chronic, POA -continue lorazepam GERD, chronic, POA -continue omeprazole HLD, chronic, POA -continue lipitor Migraines, chronic, POA -holding imitrex Pain Evaluation: Adequate Pain Control GI Prophylaxis: Not indicated VTE Prophylaxis: SCDs (SCDs until proven stable without procedure) Resuscitation Status: CPR: Attempt Resuscitation Gracy Grimes DO Oct 18, 2016 23:23
[2016-10-19] VITALS (10 sets, daily range): BP systolic 124–172; BP diastolic 62–91; PULSE 88–119; RESP 12–18; O2SAT 92–98
[2016-10-19] MEDS: Pantoprazole 20 mg ER24 Tablet PO SCH ×2 (00:06→21:08)
[2016-10-19] MEDS ORDERED: Dextrose 10% 250 ML IV PRN (00:10)
[2016-10-19] MEDS: 0.9% Sodium Chloride 1,000 ML IV SCH ×3 (00:11→21:12)
[2016-10-19] MEDS: LORazepam 1 mg Tablet PO PRN ×3 (00:16→21:08)
--- NOTE | 2016-10-19 00:38 | NUR ---
Admit notes: Pt admitted from ER, able to ambulate from the fernandez to room. Steady on feet, does states some occasional "lightheadedness". Alert and oriented x3. Right flank pain reported at 8/10, improved from arrival to ER, but still present. Pain described as coming in waves. Taking only water upon admit, denies nausea. Will be NPO after midnight. Oriented to room and call light, using call light for needs.
[2016-10-19] MEDS: HYDROmorphone 0.5 mg/0.5 mL iSecure Syringe IVPUSH PRN ×2 (01:57→06:15)
[2016-10-19] MEDS: Insulin Human REGular 300 Unit/3 mL Inj SUBQ SCH ×4 (02:02→21:07)
[2016-10-19 06:28] LABS: BASOPHILS % (AUTO) 0.1 % (0-3); EOSINOPHILS % (AUTO) 0.7 % (0-5); MONOCYTES % (AUTO) 9.2 % (4-12); Mean Corpuscular Hemoglobin 27.1 pg (27.0-35.0); Mean Corpuscular Volume 88.4 fL (81-100); NEUTROPHILS % (AUTO) 75.9 % (40-74); Platelet Count 274 bil/L (150-400)
--- NOTE | 2016-10-19 07:27 | NUR ---
Pain: Pt medicated for pain about every 4 hours for right flank pain. This morning pt states pain is much improved.
--- NOTE | 2016-10-19 10:29 | PCM.HPSURG ---
Subjective Referring Provider: Admitting Physician: Chau Ahmadi Primary Care Physician: Other,Physician Attending Physician: Chau Ahmadi Chief Complaint I was asked by Dr Ahmadi for evaluation and treatment recommendations for a 71 y/o woman with Rt hydrureteronephosis s/p URS/LL on 10/11 and JJ removal 10/18 in clinic inc pain post stent removal History of Present Illness Pt is a 71 y/o diabetic woman admitted to [facility] with intractable pain, elevated LA in setting of recent clinic sent removal (10/18) after uneventful URS/LL by Malina Gonsalves for Rt sided calculus. Stent removed uncomplicated in clinic and pt c /o post procedure "illness" with nausea and lighheadednes and recurrence of progressively worse Rt flank pain. Was seen in the ER, noted to have WBC of 18 with Lactic acid of 2.[address] showing some persistent hydronephosis with some minimal perinephric fluid, dilated ureter to near bladder with some not unexpected perinephric stranding about the area of previously impacted stone. No stone is seen. Interestingly the patient's colon is quite dilated with very large cecum appearing to offer compression to the area of the disal Rt Ureter. While the rectum is decompressed, the colon is quite distended at the cecum and up around to the descending colon on the left. Pt with known h/o ischemic colitis and bowel resection and "blockage" per the pt. Has been having bowel movements and is on home stool softener. Admitted to [facility] and placed on Rocephine wiht LA sl improved firs hospital day to 2.3, remained in need of narcotics for pain and otherwise afebrile and mildly tachycardic. U Cx neg to date' CT images reviewed by me, also with the patient and with Dr Ahmadi. Allergy Allergies: Coded Allergies: morphine (Verified Adverse Reaction, Intermediate, jittery, 10/18/16) codeine (Verified Adverse Reaction, Mild, nausea, 10/18/16) Social History Hx Alcohol Use: Yes (once a month a glass of wine) Hx Substance Use: No PMH HEENT History History of ENT Problems?: Yes HEENT History: Positive for:: Cataracts (left eye June 2015) Denies:: Abnormal Airway Difficult Intubation Dysphagia Glaucoma Hearing Problem Sinus Problem TMJ Cardiovascular History History of Heart Problems?: No Cardiovascular History: Denies:: AICD Abdominal Aortic Aneurism Atrial Fibrillation Cardiac Surgery Chest Pain Congestive Heart Failure Edema Heart Murmur Hypertension Irregular Heartbeat Pacemaker Rheumatic Fever Thrombophlebitis Respiratory History of Respiratory Problem: No Respiratory History: Denies:: Asthma COPD Chest Surgery Dyspnea Emphysema Hemoptysis Pneumonia Tuberculosis Neurological History Hx Neurologic Problems?: Yes Neurological History: Positive for:: Headaches (Occ migraines) Denies:: Alzheimer's Disease CVA Dementia Dizziness Multiple Sclerosis Parkinson's Disease Seizures Gastrointestinal History HX of GI Problems?: Yes Gastrointestinal History: Positive for:: Diverticulitis Gastroesphageal Reflux (Prilosec controlled) Rectal Bleeding Denies:: Cirrhosis Gastrointestinal Bleeding Heartburn Hepatitis Hiatal Hernia Genitourinary History Hx of Gu Problems?: Yes Genitourinary History: Positive for: Kidney Stones Urinary Tract Infection Denies: HX of Hemodialysis Female/Male History Reproductive History Female: Denies: Currently ? Endometriosis Pelvic Inflammatory DX Problems with Breasts? Skin History Skin History: Denies:: History Skin Disorders? Pressure Ulcers Musculoskeletal History Hx Musculoskeletal Problems?: Yes Musculoskeletal History: Positive for:: Musculoskeletal Trauma (2012 broke scapula with plate repair) Denies:: Back Injury Degenerative Joint Joint Replacement Systemic Lupus Psycho Social History Hx of Psycho/Social Problems?: Yes Psycho Social History: Positive for:: Anxiety (Ativan PRN) Hx Depression Denies:: Bipolar Disorder Suicide Attempt Other History Hx Any Other Health Problems?: Yes Other History: Positive for:: Endocrine Disease Hospitalization Thyroid Disease (Hypothyroid on Levothyroxin) Denies:: Cancer Diabetes: YesBedside Blood Glucose: 148 Social History Hx Alcohol Use: Yes (once a month a glass of wine)Hx Substance Use: No Smoking Status: Never Smoker Review of Systems Constitutional: Reports: Malaise, Sweats, Weakness ENT: Denies: Nasal Congestion, Throat Pain, Tinnitus Cardiovascular: Denies: Chest Pain, Palpitations Respiratory: Denies: Cough, Hemoptysis, Shortness of Breath, Sputum Gastrointestinal: Reports: Abdominal Pain, Change in Appetite, Constipation, Nausea, Denies: Diarrhea Genitourinary: Reports: Hematuria, Denies: Change in Frequency, Dysuria Musculoskeletal: Reports: Back Pain, Denies: Redness, Swelling Skin: Denies: Bruising, Jaundice, Rash Neurological: Reports: Weakness, Denies: Change in Speech, Confusion Psychologic: Denies: Agitation, Disorientation, Nervousness Endocrine: Reports: Change in Appitite, Denies: Intolerent to Heat/Cold, Polydipsea, Polyuria H&P Surgical Exam Exam General: Alert, Oriented X3, Cooperative, No Acute Distress Neck: Supple, Other (midline trachea, no scars. no tendernes) Lungs: Normal Air Movement (no audible ronchi or wheezes, no tachypnea) Heart: Other (Reg rate, warm ext, tr dep edema, no JVD supine) Abdomen: Benign, Appropriately tender, Guarding (non-distended, no rebound, no peritoneal signs) Extremities: Warm (some dep edema) Neuro: Grossly Neurologically Intact (clear speech, symmetric face, symmetric UEs) Catheters: None Lab & Micro Results: as above Diagnostics: CT as above Assessment & Plan Assessment Rt sided hydronephosis with hydroureter to pelvis in setting of recent operation /ureteroscopy/laser lithotripsy such findings with perinephric and ureteral stranding is no unexpected Pts pain and labs out of proportion to normal findings post stent removal Noted also dilated and full Cecum and Colon generally, by CT appears may contribute to patient's ureteral obstrucion by compression. exacerbated by ongoing narcotic use/need Labs bridget with elevated WBC and LA, cultures pending and neg to date. afebrile Discussed with primary service Dr Ahmadi and with patient and her VTE Prophylaxis: SCDs (SCDs until proven stable without procedure) Plan: Rt JJ stent replacement for now Would keep for at least 1 week- pt would f/u in clinic post discharge Would recommend working on her constipation this hospitalization with bowl regimen to help prevent such colon dilation in the future f/u cultures and treat appropriately as you are doing Pt risk/benefit of JJ replacemnet discussed Resuscitation Status: CPR: Attempt Resuscitation Jacquelin Griffin MD Oct 19, 2016 10:29
--- NOTE | 2016-10-19 11:56 | NUR ---
Off floor to OR Patient off floor to OR at 1153. Vitals stable, reports pain in flank as tolerable, and in no apparent distress. Report given to OR nursing staff. Chart with patient, electromyographic technician aware. Addendum: 10/19/16 at 1345 by EMILIE NUÑEZ RN Patient returned from PACU at 1330, AAOx4, denies pain and nausea, gait steady and able to ambulate from gurney to bathroom and back to bed. Patient voids 500mL light ryan urine. No pink color, clots noted. Bed low and locked, call light in reach, care and frequent rounding ongoing.
--- NOTE | 2016-10-19 12:02 | NUR ---
Social Work- attempted assessment: Data:EMR Reviewed. Pt is a 71 y/o female who was admitted on 10/18/16 for pyelonephritis per H&P. Pt insurance is [facility] and [email or web address] J. Hilburn and PCP is other. EMR reviewed. SW attempted to see pt at bedside to complete assessment. Pt currently in the OR for procedure with Urology. SW to follow up tomorrow to complete assessment. SW will continue to follow. Assessment:pt who is independent at baseline. Plan:Pt to discharge home when medically stable via POV. SW to follow up tomorrow to complete assessment. SW will continue to follow. MAGDALENA Dia
[2016-10-19] MEDS ORDERED: Lactated Ringer's 1,000 ML IV SCH (12:07)
[2016-10-19] MEDS ORDERED: Lactated Ringer's 500 ML IV PRN (12:07)
[2016-10-19] MEDS ORDERED: Ondansetron 2 mg/mL 2 mL Inj IVPUSH PRN (12:10)
[2016-10-19] MEDS ORDERED: HYDROmorphone 1 mg/mL Inj IVPUSH PRN (12:10)
[2016-10-19] MEDS ORDERED: Phenylephrine 10,000 mCg/mL Inj IVPUSH PRN (12:10)
[2016-10-19] MEDS ORDERED: MetoCLOpramide 5 mg/mL 2 mL Inj IVPUSH PRN (12:10)
[2016-10-19] MEDS ORDERED: EPHEDrine Sulfate 50 mg/mL Inj IVPUSH PRN (12:10)
[2016-10-19] MEDS ORDERED: fentaNYL-PF 50 mCg/mL 2 mL Inj IVPUSH PRN (12:10)
[2016-10-19] MEDS ORDERED: Atropine 0.4 mg/mL Inj IVPUSH PRN (12:10)
[2016-10-19] MEDS ORDERED: Labetalol 5 mg/mL 4 mL Inj IV PRN (12:10)
--- NOTE | 2016-10-19 12:24 | PCM.HPANE ---
Patient Data Surgeon Admitting Provider:Chau Ahmadi Attending Provider:Chau Ahmadi Primary Care Physician:Other,Physician Other Provider:Keith Greenwood MD Reason for Visit Pyelonephritis PYELONEPHRITIS Ht/WT & BMI Height (Feet): 5 Height (Inches): 2.00 Weight (Kilograms): 75.200 Body Mass Index 30.51 Allergies Coded Allergies: morphine (Verified Adverse Reaction, Intermediate, jittery, 10/18/16) codeine (Verified Adverse Reaction, Mild, nausea, 10/18/16) Past Anesthesia History Anesthesia History: Denies:: Abnormal Airway, Anesthesia Reactions, Difficult Intubation, Fam Anesthesia Reaction, Fam Malignant Hypertherm, Malignant Hyperthermia Diabetes History Hx Diabetes?: Yes Type of Diabetes: Type II Glycemic Control: Oral Medication Current Bedside Blood Glucose: 148 MRSA MRSA: No Medications Reported Medications Cholecalciferol (Vitamin D3) (Vitamin D3)2,000 Unit Capsule2,000 Unit PO DAILYWD 10/18/16 Docusate Calcium (Stool Softener)240 Mg [id number] Mg PO HS PRN For Constipation 10/18/16 Metformin 500 Mg [id number] Mg PO DAILYWD Ref 0 10/18/16 Metformin 500 Mg Tablet1,000 Mg PO MORNING Ref 0 10/18/16 Magnesium Amino Acid Chelate (Magnesium)100 Mg [id number] Mg PO DAILY 10/18/16 Biotin 10 Mg [id number] Mg PO DAILY 10/18/16 Fluoxetine (Prozac)20 Mg Kihplax19 Mg PO DAILY Ref 0 10/11/16 [tylenol] No Conflict Check1,000 Mg PO prn 10/11/16 Levothyroxine 125 Mcg Hxgpiy410 Mcg PO DAILY For Thyroid Replacement Ref 0 10/07/16 Hydrocodone-Acetaminophen 5-300 mg 1 Each Tablet1 Tablet PO QID For Pain Ref 0 10/07/16 Omeprazole Magnesium (Prilosec Otc)20 Mg Tablet.dr20 Mg PO HS #1 PKG Ref 0 10/07/16 [Lipitor] No Conflict Check20 Mg PO DAILY 10/07/16 [Imitrex] No Conflict CheckUnknown Dose DIRECTED PRN Headache 10/07/16 Lorazepam (Ativan)1 Mg Tablet1 Mg PO TID PRN For Anxiety Ref 0 10/07/16 [Amitriptyline] 10 No Conflict Check10 Mg PO HS 10/07/16 Discontinued Reported Medications [metformin] No Conflict Chbel203 Mg PO BID 10/07/16 [magnesium] No Conflict CheckUnknown Dose 10/07/16 [biotin] No Conflict CheckUnknown Dose 10/07/16 History History of ENT Problems?: Yes HEENT History: Positive for:: Cataracts (left eye June 2015) Denies:: Abnormal Airway Difficult Intubation Dysphagia Glaucoma Hearing Problem Sinus Problem TMJ Denture Type: None Teeth Condition: Within Normal Limits Hx of Heart Problems?: No Cardiovascular History: Denies:: AICD Abdominal Aortic Aneurism Atrial Fibrillation Cardiac Surgery Chest Pain Congestive Heart Failure Edema Heart Murmur Hypertension Irregular Heartbeat Pacemaker Rheumatic Fever Thrombophlebitis Hx of Respiratory Problem?: No Respiratory History: Denies:: Asthma COPD Chest Surgery Dyspnea Emphysema Hemoptysis Pneumonia Tuberculosis Hx Neurologic Problems?: Yes Neurological History: Positive for:: Headaches (Occ migraines) Denies:: Alzheimer's Disease CVA Dementia Dizziness Multiple Sclerosis Parkinson's Disease Seizures Hx of GI Problems?: Yes Hx of Problems?: Yes Genitourinary History: Positive for:: Kidney Stones Urinary Tract Infection Denies:: HX of Hemodialysis HX of Peritoneal Dialysis: No Female Hx: Denies:: Currently Endometriosis Pelvic Inflammatory Problems with Breasts? Skin History: Denies:: History Skin Disorders? Pressure Ulcers Hx Musculoskeletal Problems?: Yes Musculoskeletal History: Positive for:: Musculoskeletal Trauma (2012 broke scapula with plate repair) Denies:: Back Injury Degenerative Joint Joint Replacement Systemic Lupus Hx of Psycho/Social Problems?: Yes Psycho Social History: Positive for:: Anxiety (Ativan PRN) Hx Depression Denies:: Bipolar Disorder Suicide Attempt Hx Surgeries?: Yes (Hysterectomy, Partial bowel resection, Hernia repair, Sholder fx) Hx Any Other Health Problems?: Yes Other History: Positive for:: Endocrine Disease Hospitalization Thyroid Disease (Hypothyroid on Levothyroxin) Denies:: Cancer History Blood Transfusions: Positive for:: Accept Blood Products? Blood Transfusions (Post child 1968) Denies:: Blood Transfuse Reaction Hx Diabetes: YesBedside Blood Glucose: 148 Hx Alcohol Use: Yes (once a month a glass of wine)Hx Substance Use: No Smoking Status: Never Smoker Stop/Bang Treated for Sleep Apnea?: No S-Snoring: Do You Snore Loudly: Yes T-Tired: feel tired, fatigued: No O-Obsered: Observed not breath: No P-Blood Pressure: treated: No B- Body Mass Index > 35 kg/m2: No A- Age over 50: Yes N- Neck Large Circumference: No G- Gender Male: No CARLOS MANUEL Total Score: 1 Risk Assessment Category Category 1A: Patient has history of documented sleep apnea, and HAS NOT received any narcotic, sedative or anesthesia administration during this stay. Category 1B: Patient has history of documented sleep apnea, and HAS received any narcotic , sedative or anesthesia administration during this stay Category 2: Patient has SUSPECTED Obstructive Sleep Apnea, and HAS received any narcotic , sedative or anesthesia administration during this stay. Category 3: Patient has SUSPECTED Obstructive Sleep Apnea and HAS NOT received narcotic, sedative or anesthesia administration during this stay. Category 4: Outpatient in Procedural Areas with known sleep apnea or who screen positive for High Risk via the STOP/BANG questionnaire. Exam Exam Vital Signs Vital Signs Date Time Temp Pulse Resp B/P Pulse Ox O2 Delivery O2 Flow Rate FiO2 10/19/16 10:19 88 10/19/16 09:47 37.0 95 16 124/76 92 Room Air 10/19/16 05:22 37.0 105 18 137/79 92 Room Air General Appearance: Alert, Oriented X3 HEENT/AIRWAY: MP 2, Neck Movement (FROM) Lungs: Clear to Auscultation, Clear to Percussion, Normal Air Movement (no audible ronchi or wheezes, no tachypnea) Heart: Exam Unremarkable, Regular Rate/Rhythm, Other (Reg rate, warm ext, tr dep edema, no JVD supine) Meds/Labs/Diagnostics Admission Meds Current Medications Ondansetron HCl (Zofran ODT) 8 mg STK-MED ONCE .ROUTE Last administered on 16:30; Start 10/18/16 at 16:10; Stop 10/18/16 at 16:11; Status DC Hydromorphone HCl 2 mg 2 mg ONCE ONCE IM Last administered on 10/18/16 18:03; Start 10/18/16 at 17:50; Stop 10/18/16 at 17:52; Status DC Sodium Chloride (Normal Saline) 1,000 ml @ 0 mls/hr Q0M ONCE IV Last administered on 10/18/16 18:44; Start 10/18/16 at 18:04; Stop 10/18/16 at 18:06; Status DC Hydromorphone HCl 0.5 mg 0.5 mg ONCE ONCE IVPUSH Last administered on 18:44; Start 10/18/16 at 18:05; Stop 10/18/16 at 18:06; Status DC Sodium Chloride 1,000 ml @ 0 mls/hr Q0M ONCE IV Last administered on 10/18/16 20:06; Start 10/18/16 at 20:00; Stop 10/18/16 at 20:01; Status DC Ceftriaxone Sodium/Dextrose/ Water (Rocephin Inj/ D5W Minibag Plus) 50 ml @ 100 mls/hr ONCE ONCE IV Last administered on 10/18/16 20:35; Start 10/18/16 at 20:10; Stop 10/18/16 at 20:39; Status DC Fluoxetine HCl (Prozac) 20 mg DAILY PO Last administered on 10/19/16 08:52; Start 10/19/16 at 08:30 Levothyroxine Sodium (Synthroid) 125 mcg DAILYAC PO Last administered on 08:52; Start 10/19/16 at 07:30 Pantoprazole (Protonix) 20 mg HS PO Last administered on 10/19/16 00:06; Start 10/18/16 at 23:49 Atorvastatin Calcium 20 mg 20 mg DAILY PO Last administered on 10/19/16 08:52; Start 10/19/16 at 08:30 Sodium Chloride (Normal Saline) 1,000 ml @ 100 mls/hr Q10H IV Last administered on 10/19/16 09:38; Start 10/18/16 at 23:35 Bedside Blood Glucose: 148 Labs Test 10/18/16 17:15 10/18/16 18:54 10/19/16 06:12 10/19/16 06:35 Prothrombin Time 9.7sec (8.1-12.5) Prothromb Time International Ratio 0.91ratio Magnesium Level 2.0mg/dL (1.6-2.6) Total Bilirubin 0.3mg/dL (0.0-1.2) Aspartate Amino Transf (AST/SGOT) 24U/L (0-50) Alanine Aminotransferase (ALT/SGPT) 21U/L (0-32) Alkaline Phosphatase 78U/L (25-165) Total Protein 7.7g/dL (6.4-8.4) Albumin 4.2g/dL (3.4-5.0) Lipase 11U/L (13-60) Hold Gardner Top Tube Received (Received) Urine Color Yellow (YELLOW) Urine Appearance Hazy (CLEAR,HAZY) Urine pH 5.0 (5.0-8.0) Urine Specific [place] 1.030 (1.003-1.035) Urine Protein 100mg/dL (NEG,TRACE) Urine Glucose (UA) 250mg/dL (NEGATIVE) Urine Ketones Tracemg/dL (NEGATIVE) Urine Occult Blood Large (NEGATIVE) Urine Nitrite Negative (NEGATIVE) Urine Bilirubin Negative (NEGATIVE) Urine Urobilinogen Normalmg/dL (NORMAL) Urine Leukocyte Esterase Trace (NEGATIVE) Urine RBC 11-50/hpf (0-2) Urine WBC 6-10/hpf (0-5) Urine Epithelial Cells None/hpf (NONE-MOD) Urine Crystals None seen (NONE SEEN) Urine Bacteria Few/hpf (NONE-FEW) Urine Hyaline Casts None/lpf (NONE) Urine Granular Casts None seen (NONE SEEN) Urine Waxy Casts None seen (NONE SEEN) Urine Red Blood Cell Casts None seen (NONE SEEN) Urine White Blood Cell Casts None seen (NONE SEEN) Urine Mucus None seen (None Seen) Urine Trichomonas None seen (NONE SEEN) Urine Yeast None (NONE SEEN) Urinalysis Comment None Urine Culture Reflexed Indicated White Blood Count 15.5th/mm3 (3.8-10.1) Red Blood Count 4.13mil/mm3 (3.90-5.20) Hemoglobin 11.2g/dL (12.0-15.6) Hematocrit 36.5% (35.0-46.0) Mean Corpuscular Volume 88.4fL (81-100) Mean Corpuscular Hemoglobin 27.1pg (27.0-35.0) Mean Corpuscular Hemoglobin Concent 30.7% (32.0-37.0) Red Cell Distribution Width 13.7% (12.3-15.4) Platelet Count 274bil/L (150-400) Neutrophils (%) (Auto) 75.9% (40-74) Lymphocytes (%) (Auto) 13.8% (14-46) Monocytes (%) (Auto) 9.2% (4-12) Eosinophils (%) (Auto) 0.7% (0-5) Basophils (%) (Auto) 0.1% (0-3) Sodium Level 138mEq/L (134-144) Potassium Level 4.3mEq/L (3.5-5.2) Chloride Level 103mEq/L (97-108) Carbon Dioxide Level 23mmol/L (18-29) Blood Urea Nitrogen 14mg/dL (8-27) Creatinine 0.80mg/dL (0.57-1.00) Estimat Glomerular Filtration Rate 102mL/min (>59) Glucose Level 148mg/dL (60-99) Calcium Level 8.6mg/dL (8.5-10.1) Lactic Acid Level 2.3mmol/L (0.4-2.0) Plan Impression Patient chart reviewed, patient interviewed and anesthestic plan with risks, benefits, and alternatives discussed, and informed consent obtained. ASA Physical Status: ASA2 Mod Systemic Disease Anesthetic Plan: GA Bene/Risks/Altern/Consents: Yes HP Complete Prior to Induction: Yes Memo Garcia MD Oct 19, 2016 12:07
[2016-10-19] MEDS ORDERED: Lactated Ringer's 1,000 ML IV ONE (12:34)
[2016-10-19] MEDS ORDERED: Phenazopyridine 97.5 mg Tablet PO PRN (12:55)
--- NOTE | 2016-10-19 12:59 | PCM.SURGPO ---
Immediate Operative Note Date of Surgery: Oct 19, 2016 Pre Operative Diagnosis Rt renal colic, right hydronephosis Post Operative Diagnosis same Procedure Rt retrograde pyelogram Rt JJ stent Surgeon and Neuropathologist Surgeon: Elias Assistants: None Findings Some areas of relative narrowing to ureter, smooth, with Less hydronephosis than CT from previous day NO extravasation of urine from kidney or ureter no purulent drainge post stent placement Complications There were no periprocedural complications identified. Surgical Specimen Removed: No Specimen sent to Pathology: Not applicable Anesthetic Administered: GA Grafts, Implants: Grafts-See Implant Record Output, Estimated Blood Loss: 10 Blood Admin during surgery: No Jacquelin Griffin MD Oct 19, 2016 12:59
--- NOTE | 2016-10-19 13:53 | DRSVH ---
PROCEDURE: X-RAY RETROGRADE UROGRAPHY INDICATIONS: C-ARM ASSISTED RIGHT STENT PLACEMENT TECHNIQUE: 5 intra-operative images acquired by the Urology service. COMPARISON: [facility], CR, XR RETROGRADE UROGRAPHY, 10/11/2016, 13:46. FINDINGS: IMPRESSION: Possible smooth focal narrowing in the distal right ureter. Mildly dilated right renal co llecting system. Right ureteral stent. Dictated by: Uvaldo Flores M.D. on 10/19/2016 at 13:44 Approved by: Uvaldo Flores M.D. on 10/19/2016 at 13:46
[2016-10-19] MEDS ORDERED: IMI100 PO (14:30)
[2016-10-19] MEDS ORDERED: fentaNYL-PF 50 mCg/mL 2 mL Inj ONE (14:38)
[2016-10-19] MEDS ORDERED: Propofol 10,000 mCg/mL 20 mL Inj ONE (14:38)
[2016-10-19] MEDS ORDERED: Lidocaine PF 1% 30 mL Inj ONE (14:38)
[2016-10-19] MEDS ORDERED: Ondansetron 2 mg/mL 2 mL Inj ONE (14:38)
[2016-10-19] MEDS ORDERED: Dexamethasone 4 mg/mL Inj ONE (14:38)
[2016-10-19] MEDS: HYDROcodone-APAP 5-325 mg Tablet PO PRN ×2 (15:39→21:08)
--- NOTE | 2016-10-19 15:57 | NUR ---
Headache / anxiety Patient C/O pain of 5-6 in flank and radiating to neck and head, and is concerned a migraine is coming on. States she also feels quite anxious about her pain coming back. Positioned for comfort, lights dimmed, PRN Ativan and hydrocodone given. Patient provided with ice pack for neck. Pain reduced to 4/10 and patient reports she thinks it might also have been related to being NPO for procedure and feels "much better" after eating a snack. Resting with eyes closed, RR regular, no signs distress. Bed low and locked, call light in reach, care and frequent rounding ongoing.
--- NOTE | 2016-10-19 17:46 | PCM.PNMED ---
Subjective Date of Service Oct 19, 2016 Subjective Says overall feeling better than yesterday. denies any new issues/complaints Exam Vital Signs Vital Sign - Last Date Time Temp Pulse Resp B/P Pulse Ox O2 Delivery O2 Flow Rate FiO2 10/19/16 13:40 36.9 89 18 130/77 96 Room Air 10/19/16 13:00 8 Intake and Output 10/18/16 10/18/16 10/19/16 Cumulative From/Thru 15:00 23:00 07:00 10/18/16 15:56 - 10/19/16 06:21 Intake Total 999 ml 1007 ml 2006 ml Output Total 1250 ml 1250 ml Balance 999 ml -243 ml 756 ml Intake Oral 400 ml 400 ml IV Total 999 ml 607 ml 1606 ml Output Urine Total 1250 ml 1250 ml # Voids 2 2 General: Alert, Cooperative, No Acute Distress Head: Normal Eyes: Scleral Anicteric Nose: Mucous Membr Moist/Kinnelon Mouth: Mucous Membr Moist/[place] Neck: Supple Chest & Lungs: Chest Wall Normal, Clear to auscultation & percussion Cardiovascular: Regular Rate/Rhythm Abdomen: Non-tender, Non-distended, Normoactive bowel tones, Soft Extremities: No cyanosis/clubbing/edma bilat Neurological: Grossly Neurologically Intact, Normal Speech IVs and Medications Medications Reviewed: Medications were reviewed in detail Lab and Diagnostics Result Diagram: 10/19/1661110/19/16611 X-Rays, CTs and MRIs Patient Name: WALTER LÓPEZ MR#: [id number] [place] [facility] [place] Phys: Apollo Oropeza MD Date of Service: 10/18/161811 PROCEDURE: CT ABDOMEN AND PELVIS WITH CONTRAST ([id number]) INDICATIONS: recent stent removal, now sudden, severe R CVA eryn TECHNIQUE: After the administration of intravenous contrast, 5 mm thick sections acquired from the diaphragm to the symphysis. 5 mm coronal and sagittal reformats were acquired. For radiation dose reduction, the following was used: automated exposure control, adjustment of mA and/or kV according to patient size. COMPARISON: [facility], CT, CT KUB, 09/15/2016, 10:56. FINDINGS: Image quality: Excellent. ABDOMEN: Lung bases: Lung bases are clear. Heart size is normal. Solid organs: Hepatic steatosis, otherwise liver and spleen are normal in size and enhancement. Gallbladder negative. Biliary system is non dilated. Pancreas enhances normally. No adrenal nodules. Possible left parapelvic cysts. There is persistent rxef-jj-woadppll right hydronephrosis and hydroureter with perinephric and periureteral inflammatory stranding. A previously seen distal right ureteral calculus is no longer visualized. No bladder calculi seen. Peritoneum and bowel: Bowel loops demonstrate normal wall thickness and caliber. No free fluid or air. The appendix is not clearly identified. The rectum is largely decompressed. There is a large amount of stool throughout the colon. Surgical clips seen within the left abdomen Nodes and vessels: No retroperitoneal or mesenteric adenopathy by size criteria. Aorta and inferior vena cava are normal in size. Miscellaneous: No ventral hernias. PELVIS: Genitourinary: The bladder is decompressed. Miscellaneous: No inguinal hernias or adenopathy. Bones: No suspicious bony lesions. No vertebral body compression fractures. IMPRESSION: Persistent yyky-ov-[id number] right hydroureteronephrosis with perinephric and periureteral inflammatory stranding. This may have increased slightly since the prior study. Interval disappearance of previously seen distal right ureteral calculus since prior CT dated 08/16/16. No current urolithiasis identified. Left parapelvic cysts. Hepatic steatosis. Dictated by: Naresh Cook M.D. on 10/18/2016 at 19:33 Approved by: Naresh Cook M.D. on 10/18/2016 at 19:38 Assessment & Plan 71 yo F with past medical history of diabetes type 2, HLD, bowel resection 2/2 ischemic colitis admitted following ureter stent removal with severe sepsis secondary to pyelonephritis # Acute severe sepsis. present on admission -HR>90, WBC>12, RR=20, Lactic acid 2.7 on admission -source most likely urinary -clinically improving -treatment as below -followup Lactic acid level to ensure resolution # Acute and recurrent UTI/pyelonephritis. Present on admission. Ongoing -recent stent placement with removal on day of admission -Urine with possible UTI -flank pain and imaging suggestive of acute pyelonephritis -continue Ceftriaxone -appreciate urology consult. will followup with recs -plan for right JJ replacement today # Diabetes, chronic, POA -hold metformin -HgA1C pending -regular SSI, low correctional # Hypothyroidism, chronic, poa -continue levothyroxine # Anxiety and depression, chronic, POA -continue lorazepam # GERD, chronic, POA -continue omeprazole # HLD, chronic, POA -continue Lipitor # Migraines, chronic, POA -continue supportive care Dispo: 1-2 days pending culture results and improved symptoms GI Prophylaxis: Not indicated VTE Prophylaxis: SCDs (SCDs until proven stable without procedure) Resuscitation Status: CPR: Attempt Resuscitation Chau Ahmadi Oct 19, 2016 17:46
[2016-10-19] MEDS: cefTRIAXone Inj 1,000 MG in Dextrose 5% Minibag Plus 50 ML IV SCH (21:07)
[2016-10-20] VITALS (7 sets, daily range): BP systolic 118–152; BP diastolic 74–84; PULSE 84–108; RESP 18; O2SAT 92–98
[2016-10-20] MEDS: Insulin Human REGular 300 Unit/3 mL Inj SUBQ SCH ×5 (02:30→20:26)
[2016-10-20] MEDS: 0.9% Sodium Chloride 1,000 ML IV SCH ×2 (05:17→15:54)
--- NOTE | 2016-10-20 05:41 | NUR ---
Sleep/pain PT slept well all night with only min pain, she was a little anxious at HS, Ativan given with good results. No blood or mucus noted in urine.
[2016-10-20 07:15] LABS: BASOPHILS % (AUTO) 0.1 % (0-3); EOSINOPHILS % (AUTO) 0.5 % (0-5); MONOCYTES % (AUTO) 9.7 % (4-12); Mean Corpuscular Hemoglobin 27.3 pg (27.0-35.0); Mean Corpuscular Volume 88.8 fL (81-100); NEUTROPHILS % (AUTO) 75.8 % (40-74); Platelet Count 253 bil/L (150-400)
[2016-10-20 07:53] LABS: Magnesium 2.1 mg/dL (1.6-2.6)
--- NOTE | 2016-10-20 10:28 | NUR ---
[facility] signed
--- NOTE | 2016-10-20 11:18 | NUR ---
Case Management: Initial Assessment Data:See initial assessment. Pt is a 71 y/o female who was admitted on 10/18/16 for pyelonephritis per H&P. Pt's insurance is Medicare and [employer] supplement, and PCP is Keith Greenwood MD. EMR reviewed. Pt's readmission score is 5. EDYTA RN met with pt at bedside, DCP role explained. Pt is alert and oriented x3. Pt resides at home with her where she remains independent with ADLS. Pt drives and does not use any DME. Pt states has an Advanced Directive, and believes a copy was provided to the hospital. Pt has no HH and no SNF history. Pt has no [place] [facility] care insurance or [place] benefits. Pt states her will provide transport home at discharge. Provided with Discharge Planning Checklist booklet and encouraged pt to call if any questions. EDYTA RN provided phone number and plan on white board in room. No discharge needs identified. SW will continue to follow if needs arise. Assessment:Pt who is independent at baseline. Plan:Pt to discharge home when medically stable via POV. No discharge needs identified. SW will continue to follow if needs arise. EDYTA Gooden RN Addendum: 10/20/16 at 1125 by ROSE MILES CM Amended: Links added.
[2016-10-20] MEDS: LORazepam 1 mg Tablet PO PRN ×2 (11:42→21:17)
--- NOTE | 2016-10-20 12:41 | PCM.PNMED ---
Subjective Date of Service Oct 20, 2016 Subjective Stefania Walker is a 71 yo woman with past medical history of diabetes type 2, HLD, bowel resection 2/2 ischemic colitis admitted following ureter stent removal with severe sepsis secondary to pyelonephritis. Hospital day #3. Overnight: No acute events reported. Today: Patient is complaining of right groin pain especially after urination. She is also noting a recurrence of her chills without fever this morning. She otherwise feels better. She denies any nausea, vomiting, diarrhea. She actually complains of constipation which is a chronic problem for her and this feels worse. She did have a small bowel movement this morning she is willing to try magnesium citrate for her constipation. Remainder review of systems is negative except as noted above. Exam Vital Signs Vital Sign - Last Date Time Temp Pulse Resp B/P Pulse Ox O2 Delivery O2 Flow Rate FiO2 10/20/16 11:31 36.5 87 18 144/82 97 Room Air 10/19/16 13:00 8 Intake and Output 10/19/16 10/19/16 10/20/16 Cumulative From/Thru 15:00 23:00 07:00 10/18/16 15:56 - 10/20/16 06:40 Intake Total 650 ml 2139 ml 2268 ml 7063 ml Output Total 10 ml 2150 ml 3150 ml 6560 ml Balance 640 ml -11 ml -882 ml 503 ml Intake Oral 1400 ml 908 ml 2708 ml IV Total 650 ml 739 ml 1360 ml 4355 ml Output Urine Total 2150 ml 3150 ml 6550 ml Estimated Blood Loss 10 ml 10 ml # Voids 2 # Bowel Movements 0 1 1 Exam General: Alert, Cooperative, No Acute Distress Head: Normal Eyes: Scleral Anicteric Nose: Mucous Membr Moist/Chancellor Mouth: Mucous Membr Moist/[place]ancellor Neck: Supple Chest & Lungs: Chest Wall Normal, Clear to auscultation & percussion Cardiovascular: Regular Rate/Rhythm Abdomen: Non-tender, Non-distended, Normoactive bowel tones, Soft Extremities: No cyanosis/clubbing/edma bilat Neurological: Grossly Neurologically Intact, Normal Speech Lab and Diagnostics Result Diagram: 10/20/16 0635 10/20/16 0635 X-Rays, CTs and MRIs CT ABDOMEN AND PELVIS WITH CONTRAST IMPRESSION: Persistent bhlm-nm-sryskoqj right hydroureteronephrosis with perinephric and periureteral inflammatory stranding. This may have increased slightly since the prior study. Interval disappearance of previously seen distal right ureteral calculus since prior CT dated 08/16/16. No current urolithiasis identified. Left parapelvic cysts. Hepatic steatosis. Dictated by: Naresh Cook M.D. on 10/18/2016 at 19:33 Assessment & Plan Stefania Walker is a 71 yo woman with past medical history of diabetes type 2, HLD, bowel resection 2/2 ischemic colitis admitted following ureter stent removal with severe sepsis secondary to pyelonephritis. Hospital day #3. Acute severe sepsis. present on admission. Resolved. -HR>90, WBC>12, RR=20, Lactic acid 2.7 on admission -source most likely urinary -clinically improving -treatment as below -followup Lactic acid level to ensure resolution Acute and recurrent UTI/pyelonephritis s/p JJ stent. Present on admission. Ongoing -recent stent placement with removal on day of admission -Urine with possible UTI -flank pain and imaging suggestive of acute pyelonephritis -continue Ceftriaxone -appreciate urology consult. will followup with recs -It appears that the patient's severe constipation may be contributing to her ureteral obstruction. Severe constipation, present on admission, ongoing. -We will treat with one dose of magnesium citrate as well as a bowel regimen. -Encourage patient to drink more water and increase her fiber outtake outpatient. Diabetes, chronic, POA -hold metformin -HgA1C pending -regular SSI, low correctional Hypothyroidism, chronic, POA -continue levothyroxine Anxiety and depression, chronic, POA -continue lorazepam GERD, chronic, POA -continue omeprazole HLD, chronic, POA -continue Lipitor Migraines, chronic, POA -continue supportive care Dispo: 1-2 days pending culture results and improved symptoms GI Prophylaxis: Not indicated VTE Prophylaxis: SCDs (SCDs until proven stable without procedure) Resuscitation Status: CPR: Attempt Resuscitation Attending Statement Patient was seen and examined with house staff. Agree with all attached documentation. Tiana Ferrell DO Oct 20, 2016 12:27 Eliot Francis MD Oct 20, 2016 15:56
--- NOTE | 2016-10-20 17:33 | PCM.PNSURG ---
Subjective Date of Service: Oct 20, 2016 Date of Service: Oct 20, 2016 Visit Information: Reason for Visit Pyelonephritis Surgery/Surgery Date Post-Op Day # 1 s/p R JJ stent replacement Date of Admission: Oct 18, 2016 at 20:58 Hospital Day # 2 Subjective: c/o constipation severe Rt flank pain is improved Postop General: No Shortness of Breath Gastrointestinal: Good Appetite Pain Management: PO Postop Activity: Ambulating Independently Objective Vital Sign- Last 8 Hours Date Time Temp Pulse Resp B/P Pulse Ox O2 Delivery O2 Flow Rate FiO2 10/20/16 16:12 36.8 90 18 152/84 98 Room Air 10/20/16 11:31 36.5 87 18 144/82 97 Room Air 10/20/16 10:04 103 Intake and Output- Last 8 Hour 10/20/16 Cumulative From/Thru 07:00 10/18/16 15:56 - 10/20/16 06:40 Intake Total 2268 ml 7063 ml Output Total 3150 ml 6560 ml Balance -882 ml 503 ml Intake Oral 908 ml 2708 ml IV Total 1360 ml 4355 ml Output Urine Total 3150 ml 6550 ml Estimated Blood Loss 10 ml # Voids 2 # Bowel Movements 1 1 General: Alert, Cooperative, No Acute Distress Neck: Supple Lungs: Normal Air Movement Heart: Exam Unremarkable Abdomen: Benign Extremities: Warm Catheters: None Result Diagram: 10/20/16 0635 10/20/16 0635 Assessment & Plan Impression Rt sided hydronephosis s/p R JJ stent replacement (+h/o R URS/LL/stone extraction by Dr Gonsalves see H&P) +severe colonic constipation to cecum which is dilated and compressing distal Rt ureter Urine Cultures NEGATIVE to date Problems: Plan Pt may f/u Dr Gonsalves after discharged and improved. Will set up her f/u appointment prior to d/c home Will keep stent for now to keep this out of the equasion of her other issues. VTE Prophylaxis: SCDs (SCDs until proven stable without procedure) Resuscitation Status: CPR: Attempt Resuscitation Jacquelin Griffin MD Oct 20, 2016 17:33
--- NOTE | 2016-10-20 17:55 | NUR ---
YOLETTE Tele notified pt was in tachy in 130s. In to assess pt, was having a BM in Bathroom. Denies pain, stress, SOB. Reports feeling well. Tele reports that pt returned to [facility]'s after incident.
--- NOTE | 2016-10-20 17:56 | NUR ---
BM Pt on plan for BM and urination. IV fluids and magnesium citrate administered. Pt had 3 BM during shift, 2 were small the 3rd was Medium soft. Pt urinating frequently with good clear output, no signs of blood. Pt reports discomfort reduced. Addendum: 10/20/16 at 1846 by KATIE VELA RN Had one additional Diarrhea at end of shift
--- NOTE | 2016-10-20 20:20 | OP ---
[address] [address] OPERATIVE REPORT PATIENT: WALTER LÓPEZ : 1945 MR#: [id number] ADMIT: 10/18/2016 JOB ID: [id number] DATE OF SURGERY: 10/19/2016 SURGEON: Jacquelin Griffin MD PROCEDURE: Cystoscopy with 1 right-sided retrograde pyelogram 2 Right double-J stent placement. PREOPERATIVE DIAGNOSIS(ES): 1. Right-sided hydronephrosis. 2. Right-sided renal colic. 3. History of ureteroscopy stone extraction and stent placement and then removal. 4. Constipation with full cecum pressing on right distal ureter. POSTOPERATIVE DIAGNOSIS(ES): 1. Right-sided hydronephrosis. 2. Right-sided renal colic. 3. History of ureteroscopy stone extraction and stent placement and then removal. 4. Constipation with full cecum pressing on right distal ureter. INDICATIONS: The patient is a 71-year-old woman with a history of nephrolithiasis. Also, a history of ischemic bowel disease with bowel resection and history of constipation. Fairly recent history of right ureteral calculus which is temporized with a stent treated with ureteroscopy, stone extraction, uncomplicated. Stent was removed in clinic one-week postop. Initially did fine, however, had progressively severe right flank pain, nausea, vomiting, intractable pain. CT of the patient revealed some either persistent or new-onset right-sided hydroureteronephrosis to the level of the bladder. There was also noted to be a very full colon with distended cecum and right colon exerting some compression on the right distal ureter. She was counseled about options and due to concerns about urinary tract infection on the part of the admitting hospitalist service as well as the patient's ongoing pain, constipation and ongoing narcotic use, we elected to go ahead and replace the stent to take this out of the equation for the time being. PROCEDURE IN DETAIL: After appropriate informed consent was obtained, the patient was brought to the operating room. She received IV antibiotics prior to onset of procedure. SCDs were placed. Adequate general anesthesia induced. She was carefully placed in dorsal lithotomy position. All pressure points carefully padded. Cleaned, prepped, and draped in the usual sterile fashion. Rigid scope was introduced into the patient's bladder which was noted to be clear with no evidence of urinary tract infection. The right ureteral orifice was seen. There was no reflux noted. Ureter itself was cannulated. A retrograde pyelogram revealed some areas of relative narrowing. Unclear if this is edema from prior procedure or other sources. There were no filling defects to suggest stones. CT scan had not shown any stone in the patient's ureter. Wire was advanced into good position in the patient's kidney. There was still some modest amount of hydronephrosis, however, appeared perhaps decreased from the time of the patient's admission. Wire showed a good curl in the renal pelvis. A 6-Tajik double-J stent was advanced over the wire under fluoroscopic guidance with a good curl in the renal pelvis and a good curl in the patient's bladder. It was a 22 cm stent. Patient's bladder was drained. She tolerated the procedure well. There was no purulence to suggest infection. Once the stent was placed, there was some decompression of some minimal cellular debris. [facility]
[2016-10-20] MEDS: cefTRIAXone Inj 1,000 MG in Dextrose 5% Minibag Plus 50 ML IV SCH (20:33)
[2016-10-20] MEDS: Pantoprazole 20 mg ER24 Tablet PO SCH (20:33)
[2016-10-20] MEDS: HYDROcodone-APAP 5-325 mg Tablet PO PRN (21:17)
[2016-10-21 01:53] VITALS: BP 121/74; PULSE 84; RESP 20; O2SAT 94
[2016-10-21] MEDS: 0.9% Sodium Chloride 1,000 ML IV SCH ×2 (01:58→11:35)
[2016-10-21 05:35] VITALS: BP 145/85; PULSE 79; RESP 18; O2SAT 95
[2016-10-21 06:07] VITALS: PULSE 93
[2016-10-21 07:18] LABS: BASOPHILS % (AUTO) 0.4 % (0-3); EOSINOPHILS % (AUTO) 5.1 % (0-5); MONOCYTES % (AUTO) 8.1 % (4-12); Mean Corpuscular Hemoglobin 27.5 pg (27.0-35.0); Mean Corpuscular Volume 89.3 fL (81-100); NEUTROPHILS % (AUTO) 56.2 % (40-74); Platelet Count 227 bil/L (150-400)
[2016-10-21 08:00] VITALS: PULSE 97
[2016-10-21] MEDS: Insulin Human REGular 300 Unit/3 mL Inj SUBQ SCH ×2 (08:00→11:36)
[2016-10-21 08:46] VITALS: BP 151/82; PULSE 90; RESP 20; O2SAT 98
--- NOTE | 2016-10-21 11:00 | NUR ---
IV site redness Pt reports swelling at site where IV was inserted. Denies pain or warmth. Slight redness noted by this RN however pt sts has been scratching the area. Warm moist compress applied to area. Call light in reach, will continue to monitor. Addendum: 10/21/16 at 1205 by NALDO VERDE RN Decreased swelling noted, pt reports warmth felt good when applied. Will continue to monitor.
--- NOTE | 2016-10-21 11:02 | PCM.PNSURG ---
Subjective Date of Service: Oct 21, 2016 Date of Service: Oct 21, 2016 Visit Information: Reason for Visit Pyelonephritis Surgery/Surgery Date Post-Op Day # Date of Admission: Oct 18, 2016 at 20:58 Hospital Day #4 Subjective: R flank pain, worse with urination. constipation is improving. Tolerating PO diet. denies any fever, chills, nausea, vomiting. Postop General: No Shortness of Breath, No Chest Pain Gastrointestinal: Tolerating Oral Feedings Objective Vital Sign- Last 8 Hours Date Time Temp Pulse Resp B/P Pulse Ox O2 Delivery O2 Flow Rate FiO2 10/21/16 08:46 36.6 90 20 151/82 98 Room Air 10/21/16 06:07 93 10/21/16 05:35 36.8 79 18 145/85 95 Room Air Intake and Output- Last 8 Hour 10/21/16 Cumulative From/Thru 07:00 10/18/16 15:56 - 10/21/16 06:19 Intake Total 200 ml 9438 ml Output Total 775 ml 9985 ml Balance -575 ml -547 ml Intake Oral 200 ml 5083 ml IV Total 4355 ml Output Urine Total 775 ml 9975 ml Estimated Blood Loss 10 ml # Voids 2 # Bowel Movements 2 5 General: Alert, Oriented X3, No Acute Distress Lungs: Normal Air Movement Extremities: Warm Neuro: Grossly Neurologically Intact Catheters: None Result Diagram: 10/21/16 0655 10/21/16 0655 Assessment & Plan Impression Rt sided hydronephosis s/p R JJ stent replacement (+h/o R URS/LL/stone extraction by Dr Gonsalves see H&P) +severe colonic constipation to cecum which is dilated and compressing distal Rt ureter Problems: Plan Urine Cultures NEGATIVE to date Constipation is resolved, pt is on a bowel regimen and will continue this at home Stent will remain in place, She will follow up with Dr. Gonsalves as an outpt and will remove ureteral stent 2-3 weeks after discharge Pt was instructed to call our office once she is discharged to make an appt. Our office will call her as well, to ensure she is not lost to follow up She is ok to discharge from a urological standpoint, will await ok from hospitalist group, appreciate their care for this patient VTE Prophylaxis: SCDs (SCDs until proven stable without procedure) Resuscitation Status: CPR: Attempt Resuscitation Irene,Davida A PA-C Oct 21, 2016 11:02
--- NOTE | 2016-10-21 11:42 | PCM.DIMED ---
Discharge Instructions Date of Service Oct 21, 2016 Dates of Hospitalization Oct 18, 2016 at 20:58 Discharge Diagnosis Discharge Diagnosis sepsis, hydronephrosis, probably pyelonephritis Diet Discharge Diet: Diabetic Patient Instructions Follow-up with PCP in: 1 week Provider: Zina Gonsalves MD Follow-up in: 2 weeks Dave Ventura MD Oct 21, 2016 11:42
[2016-10-21] MEDS ORDERED: CIPR-198 PO (11:45)
[2016-10-21] MEDS ORDERED: HYDR-3090 PO (11:45)
--- NOTE | 2016-10-21 12:43 | NUR ---
Social Work: Discharge D: EMR reviewed. Pt is on day 3 of hospitalization. Per AM multi-disciplinary rounds, pt is medically stable and will discharge today. MD/UA will schedule outpt urology appointment in 1-2 weeks. Per AM multi-disciplinary rounds, no discharge needs identified. Pt to discharge home via POV. SW will continue to follow if needs arise A: Pt who is independent at baseline. P: Pt to discharge home when medically stable via POV. No discharge needs identified. SW will continue to follow if needs arise. MAGDALENA Aviles
--- NOTE | 2016-10-21 12:49 | NUR ---
Discharge Pt discharged at this time, all belongings gathered and returned to pt. VSS. No complains of increased pain, Hard copy of new scripts given. Discharge packet printed and reviewed with pt and spouse. Pt taken [place] [facility] [place]OM[facility] in wheelchair to be transported home in private vehicle driven by spouse.
--- NOTE | 2016-10-21 18:49 | PCM.DC.MED ---
Discharge Summary Date of Service Oct 21, 2016 Dates of Hospitalization Date of Hospital Admission Oct 18, 2016 at 20:58 Date of Discharge: Oct 21, 2016 Providers: Admitting Physician: Chau Ahmadi Primary Care Physician: Other,Physician Attending Physician: Chau Ahmadi Diagnosis at Time of Discharge Diagnosis at Time of Discharge sepsis, hydronephrosis, probably pyelonephritis Consultations urology Procedures XRay, CTs & MRIs CT ABDOMEN AND PELVIS WITH CONTRAST IMPRESSION: Persistent vrax-sw-cotaimuj right hydroureteronephrosis with perinephric and periureteral inflammatory stranding. This may have increased slightly since the prior study. Interval disappearance of previously seen distal right ureteral calculus since prior CT dated 08/16/16. No current urolithiasis identified. Left parapelvic cysts. Hepatic steatosis. Dictated by: Naresh Cook M.D. on 10/18/2016 at 19:33 Invasive Procedures JJ stent replacement Brief History Pt is a 71 y/o diabetic woman admitted to [facility] with intractable pain, elevated LA in setting of recent clinic sent removal (10/18) after uneventful URS/LL by Malina Gonsalves for Rt sided calculus. Stent removed uncomplicated in clinic and pt c /o post procedure "illness" with nausea and lighheadednes and recurrence of progressively worse Rt flank pain. Was seen in the ER, noted to have WBC of 18 with Lactic acid of 2.[address] showing some persistent hydronephosis with some minimal perinephric fluid, dilated ureter to near bladder with some not unexpected perinephric stranding about the area of previously impacted stone. No stone is seen. Interestingly the patient's colon is quite dilated with very large cecum appearing to offer compression to the area of the disal Rt Ureter. While the rectum is decompressed, the colon is quite distended at the cecum and up around to the descending colon on the left. Pt with known h/o ischemic colitis and bowel resection and "blockage" per the pt. Has been having bowel movements and is on home stool softener. Admitted to [facility] and placed on Rocephine wiht LA sl improved firs hospital day to 2.3, remained in need of narcotics for pain and otherwise afebrile and mildly tachycardic. U Cx neg to date' Hospital Course Stefania Walker is a 71 yo woman with past medical history of diabetes type 2, HLD, bowel resection 2/2 ischemic colitis admitted following ureter stent removal with severe sepsis secondary to pyelonephritis. Hospital day #3. Acute severe sepsis. present on admission. Resolved. -HR>90, WBC>12, RR=20, Lactic acid 2.7 on admission -source most likely urinary -clinically improving -treatment as below -followup Lactic acid level to ensure resolution Acute and recurrent UTI/pyelonephritis s/p JJ stent. Present on admission. Ongoing -recent stent placement with removal on day of admission -Urine with possible UTI -flank pain and imaging suggestive of acute pyelonephritis -continue Ceftriaxone -appreciate urology consult. will followup with recs -It appears that the patient's severe constipation may be contributing to her ureteral obstruction. Severe constipation, present on admission, ongoing. -We will treat with one dose of magnesium citrate as well as a bowel regimen. -Encourage patient to drink more water and increase her fiber outtake outpatient. Diabetes, chronic, POA -hold metformin -HgA1C pending -regular SSI, low correctional Hypothyroidism, chronic, POA -continue levothyroxine Anxiety and depression, chronic, POA -continue lorazepam GERD, chronic, POA -continue omeprazole HLD, chronic, POA -continue Lipitor Migraines, chronic, POA -continue supportive care Patient did well, her cultures remained negative. she was sent home with course of PO ciprofloxacin with close follow up with urology Exam Vital Signs (Last) Date Time Temp Pulse Resp B/P Pulse Ox O2 Delivery O2 Flow Rate FiO2 10/21/16 08:46 36.6 90 20 151/82 98 Room Air 10/19/16 13:00 8 Exam General: Alert, Cooperative, No Acute Distress Head: Normal Eyes: EOMI Nose: Mucous Membr Moist/[employer] Mouth: Mucous Membr Moist/[employer] Neck: Supple Chest & Lungs: Chest Wall Normal, Clear to auscultation & percussion Cardiovascular: Regular Rate/Rhythm Abdomen: Non-tender, Non-distended, Normoactive bowel tones, Soft Extremities: No cyanosis/clubbing/edma bilat Neurological: Grossly Neurologically Intact, Normal Speech Test 10/18/16 17:15 10/18/16 18:54 10/19/16 06:35 10/20/16 06:35 Prothrombin Time 9.7sec (8.1-12.5) Prothromb Time International Ratio 0.91ratio Hemoglobin A1c 6.3% (4.8-5.6) Total Bilirubin 0.3mg/dL (0.0-1.2) Aspartate Amino Transf (AST/SGOT) 24U/L (0-50) Alanine Aminotransferase (ALT/SGPT) 21U/L (0-32) Alkaline Phosphatase 78U/L (25-165) Total Protein 7.7g/dL (6.4-8.4) Albumin 4.2g/dL (3.4-5.0) Lipase 11U/L (13-60) Hold Gardner Top Tube Received (Received) Urine Color Yellow (YELLOW) Urine Appearance Hazy (CLEAR,HAZY) Urine pH 5.0 (5.0-8.0) Urine Specific [place] 1.030 (1.003-1.035) Urine Protein 100mg/dL (NEG,TRACE) Urine Glucose (UA) 250mg/dL (NEGATIVE) Urine Ketones Tracemg/dL (NEGATIVE) Urine Occult Blood Large (NEGATIVE) Urine Nitrite Negative (NEGATIVE) Urine Bilirubin Negative (NEGATIVE) Urine Urobilinogen Normalmg/dL (NORMAL) Urine Leukocyte Esterase Trace (NEGATIVE) Urine RBC 11-50/hpf (0-2) Urine WBC 6-10/hpf (0-5) Urine Epithelial Cells None/hpf (NONE-MOD) Urine Crystals None seen (NONE SEEN) Urine Bacteria Few/hpf (NONE-FEW) Urine Hyaline Casts None/lpf (NONE) Urine Granular Casts None seen (NONE SEEN) Urine Waxy Casts None seen (NONE SEEN) Urine Red Blood Cell Casts None seen (NONE SEEN) Urine White Blood Cell Casts None seen (NONE SEEN) Urine Mucus None seen (None Seen) Urine Trichomonas None seen (NONE SEEN) Urine Yeast None (NONE SEEN) Urinalysis Comment None Urine Culture Reflexed Indicated Lactic Acid Level 2.3mmol/L (0.4-2.0) Magnesium Level 2.1mg/dL (1.6-2.6) Procalcitonin 0.05ng/mL (0.00-0.08) Test 10/21/16 06:55 White Blood Count 11.2th/mm3 (3.8-10.1) Red Blood Count 3.93mil/mm3 (3.90-5.20) Hemoglobin 10.8g/dL (12.0-15.6) Hematocrit 35.1% (35.0-46.0) Mean Corpuscular Volume 89.3fL (81-100) Mean Corpuscular Hemoglobin 27.5pg (27.0-35.0) Mean Corpuscular Hemoglobin Concent 30.8% (32.0-37.0) Red Cell Distribution Width 14.1% (12.3-15.4) Platelet Count 227bil/L (150-400) Neutrophils (%) (Auto) 56.2% (40-74) Lymphocytes (%) (Auto) 30.0% (14-46) Monocytes (%) (Auto) 8.1% (4-12) Eosinophils (%) (Auto) 5.1% (0-5) Basophils (%) (Auto) 0.4% (0-3) Sodium Level 143mEq/L (134-144) Potassium Level 4.1mEq/L (3.5-5.2) Chloride Level 108mEq/L (97-108) Carbon Dioxide Level 22mmol/L (18-29) Blood Urea Nitrogen 15mg/dL (8-27) Creatinine 0.56mg/dL (0.57-1.00) Estimat Glomerular Filtration Rate 153mL/min (>59) Glucose Level 123mg/dL (60-99) Calcium Level 8.8mg/dL (8.5-10.1) Discharge Medications Discharge Medications ([Amitriptyline]) 10 10 MG PO HS (Reported) ([Lipitor]) 20 MG PO DAILY (Reported) ([tylenol]) 1,000 MG PO prn (Reported) Biotin (Biotin) 10 Mg Tablet 10 MG PO DAILY (Reported) Cholecalciferol (Vitamin D3) (Vitamin D3) 2,000 Unit Capsule 2,000 UNIT PO DAILYWD (Reported) Ciprofloxacin (Ciprofloxacin) 500 Mg Tablet 500 MG PO BID Prescribed by: JENNIFER VENTURA MD Fluoxetine (Prozac) 20 Mg Capsule 20 MG PO DAILY (Reported) Hydrocodone-Acetaminophen 5-300 mg (Hydrocodone-Acetaminophen 5-300 mg) 1 Each Tablet 1 TABLET PO QID Prescribed by: JENNIFER VENTURA MD Levothyroxine (Levothyroxine) 125 Mcg Tablet 125 MCG PO DAILY (Reported) Magnesium Amino Acid Chelate (Magnesium) 100 Mg Tablet 100 MG PO DAILY (Reported ) Metformin (Metformin) 500 Mg Tablet 1,000 MG PO MORNING (Reported) Metformin (Metformin) 500 Mg Tablet 500 MG PO DAILYWD (Reported) Omeprazole Magnesium (Prilosec Otc) 20 Mg Tablet.dr 20 MG PO HS (Reported) As needed ([Imitrex]) Unknown Dose DIRECTED PRN PRN Headache (Reported) Docusate Calcium (Stool Softener) 240 Mg Capsule 240 MG PO HS PRN PRN For Constipation (Reported) Lorazepam (Ativan) 1 Mg Tablet 1 MG PO TID PRN PRN For Anxiety (Reported) Miscellaneous Medications Sumatriptan (Imitrex) 100 Mg Tablet 100 MG PO (Reported) Followup Plan Discharge Diet: Diabetic Follow-up with PCP in: 1 week Provider: Zina Gonsalves MD Follow-up in: 2 weeks Jennifer Ventura MD Oct 21, 2016 18:49
== END 2016-10-21 12:50 | disposition home or self-care (01) | DRG 872 ==
LOC: SED 15:39 → MPC 20:58
PROVIDERS: ADMIT Internal Medicine; ATTEND Internal Medicine
PROC: BT1D1ZZ Fluoroscopy of Right Kidney, Ureter and Bladder using Low Osmolar Contrast (ICD-10-PCS; 2016-10-19)
PROC: 0T768DZ Dilation of Right Ureter with Intraluminal Device, Via Natural or Artificial Opening Endoscopic (ICD-10-PCS; principal; 2016-10-19 12:30)
DX: A41.9 Sepsis, unspecified organism (principal); N13.6 Pyonephrosis; R65.20 Severe sepsis without septic shock; E11.9 Type 2 diabetes mellitus without complications; E03.9 Hypothyroidism, unspecified; F41.8 Other specified anxiety disorders; K21.9 Gastro-esophageal reflux disease without esophagitis; E78.5 Hyperlipidemia, unspecified; G43.909 Migraine, unspecified, not intractable, without status migrainosus; K59.00 Constipation, unspecified; Z79.84 Long term (current) use of oral hypoglycemic drugs